=== PATIENT | female | born 1940 | race Caucasian/White ===

== ENCOUNTER 2016-12-21 14:43 | Emergency (ER) | payer MEDICARE, BC ==
[2016-12-21] MEDS ORDERED: Ondansetron 4 MG/2 ML SDV IV ONE (15:09)
[2016-12-21] MEDS ORDERED: Morphine 2 MG/ML Syringe IVPUSH ONE ×2 (15:34→17:24)
--- NOTE | 2016-12-21 15:40 | CR ---
Clinical history: 76-year-old female injured in fall. Interpretation: Abnormal. 3 views right hand and wrist confirm acute nondisplaced slightly impacted distal diaphyseal fracture of the osteopenic right radius (surrounding soft tissue swelling). Chronic arthritic changes involving the first carpal metacarpal, first second metacarpal phalangeal and all interphalangeal/DIP joints. Deformity at the PIP joint of the small or fifth finger suggest mild dislocation. No other fracture or joint dislocation right hand or wrist. No foreign bodies.
[2016-12-21 16:13] LABS: CHLORIDE,CL 102 mmol/L (101-111); SODIUM,NA 137 mmol/L (135-145)
--- NOTE | 2016-12-21 16:43 | CT ---
Clinical history: 76-year-old female with broken wrist suffered in a fall. Scan technique: Volume acquisition of data emergency unenhanced CT scan of the head and brain obtain ed with the patient lying supine on the Siemens multi slice scanner [place], [place]. All data archived in the PACS system for storage and study (bone/brain windows). Interpretation: 1. Uniformly thick bony calvarium (symmetric hyperostosis frontalis interna) without sign of skull f racture, underlying brain contusion or epidural/subdural hematoma. 2. Symmetric clear pneumatization of the mastoid and paranasal sinuses. 3. *Large areas of edema and/or encephalomalacia associated with ischemic infarcts that involve resp ectively the occipital lobe right cerebral hemisphere posteriorly; frontal temporal lobe on the; pos terior parietal lobe on the right and much of the contralateral left parietal lobe. 3. No appreciable supratentorial or posterior fossa mass effect on the underlying mirror-image dimas l ventricular system. Para 4. No sign of acute/intraventricular/subarachnoid bleed. CONCLUSION: Large, multilobar ischemic infarcts (no previous exams immediately available). No sign o f intracranial bleed, tumor mass or hydrocephalus. No midline shifts.
--- NOTE | 2016-12-21 17:12 | EDM.PDOC ---
[id number] Time Seen by Provider: 12/21/16 15:30 Source: Reports: Patient History Limitations: Reports: No limitations - History of Present Illness INITIAL COMMENTS - FREE TEXT/NARRATIVE: Pt states that she was walking and tripped anf fell onto outstretched arm. Denies LOC. c/o right arm pain. Has an abrasion to right forehead. no other complaints. Symptom Onset Date: 12/21/16 Occurred When: just prior to arrival Occurred Where: home Method of Injury: fall Severity: moderate Pain/Injury Location: Reports: upper extremity, right Consciousness: Reports: no loss of consciousness Associated Symptoms: Reports: no other symptoms Allergies/ADRs: Allergies amoxicillin trihydrate [From Augmentin] Allergy (Verified 09/22/15 11:15) Rash doxycycline Allergy (Verified 09/22/15 11:15) Rash potassium clavulanate [From Augmentin] Allergy (Verified 09/22/15 11:15) Rash Tetanus Vaccines and Toxoid [Tetanus Vaccines & Toxoid] Allergy (Verified 13:49) Edema Home Medications: Ambulatory Orders Aspirin [Talya Chewable Aspirin] 81 mg PO DAILY 03/26/14 [Confirmed 12/16/15] Calcium Carbonate/Vitamin D3 [Calcium 500 + Vit D Caplet] 1 tab PO BID 09/18/15 [Confirmed 12/16/15] Famotidine [Take Home: Famotidine 20 MG, 3 Tab Pack] 20 mg PO DAILY 09/18/15 [ Confirmed 12/16/15] Furosemide 20 mg PO DAILY 09/18/15 [Confirmed 12/16/15] Phenytoin Sodium Extended [Dilantin] 100 mg PO TID 09/18/15 [Confirmed 12/16/15] Potassium Chloride 10 meq PO TID 09/18/15 [Confirmed 12/16/15] QUEtiapine Fumarate [Quetiapine Fumarate] 50 mg PO BEDTIME 09/18/15 [Confirmed 12/16/15] atorvaSTATin [Lipitor] 80 mg PO DAILY 09/18/15 [Confirmed 12/16/15] glipiZIDE [Glipizide] 5 mg PO BID 09/18/15 [Confirmed 12/16/15] Clotrimazole [Lotrimin AF 1% Crm] 1 each TOP BID #30 gram 09/22/15 [Confirmed ] predniSONE 10 mg PO DAILY #7 tablet 12/31/15 [Confirmed 12/16/15] Past Medical History HEENT History: Reports: Cataract, Macular degeneration Cardiovascular History: Reports: High cholesterol Respiratory History: Reports: Pneumonia, recurrent, SOB Gastrointestinal History: Reports: GERD Musculoskeletal History: Reports: Arthritis Neurological History: Reports: CVA, Migraines, Seizure Endocrine/Metabolic History: Reports: Diabetes, type II Oncologic (Cancer) History: Reports: Colon Dermatologic History: Reports: Psoriasis, Other (see below) Other Dermatologic History: current rash - Infectious Disease History Infectious Disease History: Reports: Measles, Mumps, Shingles - Past Surgical History HEENT Surgical History: Reports: Cataract surgery Cardiovascular Surgical History: Reports: Carotid endarterectomy Other Cardiovascular Surgeries/Procedures: left side GI Surgical History: Reports: Other (see below) Other GI Surgeries/Procedures: bowel resection Musculoskeletal Surgical History: Reports: Other (see below) Other Musculoskeletal Surgeries/Procedures:: arm surgery Social & Family History - Family History Family Medical History: Noncontributory Endocrine/Metabolic: Reports: Diabetes, type II Oncologic: Reports: Other (see below) Other Oncologic Family History: brother had cancer - Tobacco Use Smoking Status *Q: Never Smoker Second Hand Smoke Exposure: No - Alcohol Use Days Per Week of Alcohol Use: 0 - Recreational Drug Use Recreational Drug Use: No Review of Systems - Review of Systems Review Of Systems: See Below Musculoskeletal: Reports: arm pain Skin: Reports: cyanosis, other (abrasion) Neurological: Reports: No Symptoms ED EXAM, TRAUMA (MAJOR/MULTI) - Physical Exam Exam: See Below Exam Limited By: No limitations General Appearance: alert, WD/WN, no apparent distress Head: normocephalic, facial abrasions Eyes: bilateral eye: normal inspection, PERRL Ears: normal external exam, normal canal, hearing grossly normal, normal TMs Nose: normal inspection, normal mucousa, no blood Cardiovascular: normal peripheral pulses, regular rate, rhythm, no edema, no gallop, no JVD, no murmur, no rub Respiratory/Chest: no respiratory distress, lungs clear, normal breath sounds, no accessory muscle use, chest non-tender Extremities: no pedal edema, pain with movement, tenderness, other (hematoma to anterior wrist, mild edema noted) Neurologic: guard museum II-XII nml as tested, no motor/sensory deficits, alert, normal mood/affect, oriented x 3 Skin: Normal color, Warm/dry - [place] Coma Score Best Eye Response (Peter): (4) open spontaneously Best Verbal Response (Peter): (5) oriented Best Motor Response (Peter): (6) obeys commands Peter Total: 15 ED TRAUMA PROCEDURES - Splinting Right Upper Extremity Pre-procedure NV status: normal Post-procedure NV status: normal Splint material: fiberglass Splint design: sugar tong Applied & form fitted by: provider Provider post-splint application NV check: NV status normal, good position Complications: No Course - Vital Signs Last Recorded V/S: Last Vital Signs Temp 98.1 F 12/21/16 15:00 Pulse 92 12/21/16 15:00 Resp 18 12/21/16 15:00 BP 133/86 12/21/16 15:00 Pulse Ox 95 12/21/16 15:00 - Orders/Labs/Meds Labs: Laboratory Tests 12/21/16 12/21/16 12/21/16 Range/Units 15:47 15:47 15:47 WBC 9.1 (5.0-10.0) 10^3/uL RBC 4.39 (4.2-5.4) 10^6/uL Hgb 13.2 (12.0-16.0) g/dL Hct 39.7 (37.0-47.0) % MCV 90.4 (80-100) fL MCH 30.1 (27.0-34.0) pg MCHC 33.2 (33.0-35.0) g/dL Plt Count 177 (150-450) 10^3/uL Neut % (Auto) 71.3 (42.2-75.2) % Lymph % (Auto) 17.5 L (20.5-50.1) % Mcleod % (Auto) 9.4 H (2-8) % Eos % (Auto) 1.6 (1.0-3.0) % Baso % (Auto) 0.2 (0.0-1.0) % PT 9.6 (9.0-12.0) SEC INR 1.0 (0.9-1.2) APTT (22.0-34.0) SEC Sodium 137 (135-145) mmol/L Potassium 3.8 (3.6-5.0) mmol/L Chloride 102 (101-111) mmol/L Carbon Dioxide 26.0 (21.0-31.0) mmol/L Anion Gap 12.8 BUN 13 (7-18) mg/dL Creatinine 0.7 (0.6-1.3) mg/dL Est Cr Clr Drug Dosing TNP Estimated GFR (MDRD) > 60 Glucose 108 H (74-105) mg/dL Calcium 8.5 (8.4-10.2) mg/dl Urine Color (YELLOW) Urine Appearance (CLEAR) Urine pH (5.0-9.0) Ur Specific [place] (1.005-1.030) Urine Protein (NEGATIVE) Urine Glucose (UA) (NEGATIVE) Urine Ketones (NEGATIVE) Urine Occult Blood (NEGATIVE) Urine Nitrite (NEGATIVE) Urine Bilirubin (NEGATIVE) Urine Urobilinogen (0.2-1.0) mg/dL Ur Leukocyte Esterase (NEGATIVE) Urine RBC /HPF Urine WBC (0-5/HPF) /HPF Ur Epithelial Cells /HPF Urine Bacteria (0-FEW/HPF) /HPF Urine Mucus /LPF 12/21/16 12/21/16 Range/Units 15:47 16:03 WBC (5.0-10.0) 10^3/uL RBC (4.2-5.4) 10^6/uL Hgb (12.0-16.0) g/dL Hct (37.0-47.0) % MCV (80-100) fL MCH (27.0-34.0) pg MCHC (33.0-35.0) g/dL Plt Count (150-450) 10^3/uL Neut % (Auto) (42.2-75.2) % Lymph % (Auto) (20.5-50.1) % Mcleod % (Auto) (2-8) % Eos % (Auto) (1.0-3.0) % Baso % (Auto) (0.0-1.0) % PT (9.0-12.0) SEC INR (0.9-1.2) APTT 28.5 (22.0-34.0) SEC Sodium (135-145) mmol/L Potassium (3.6-5.0) mmol/L Chloride (101-111) mmol/L Carbon Dioxide (21.0-31.0) mmol/L Anion Gap BUN (7-18) mg/dL Creatinine (0.6-1.3) mg/dL Est Cr Clr Drug Dosing Estimated GFR (MDRD) Glucose (74-105) mg/dL Calcium (8.4-10.2) mg/dl Urine Color Yellow (YELLOW) Urine Appearance Cloudy (CLEAR) Urine pH 7.0 (5.0-9.0) Ur Specific [place] 1.020 (1.005-1.030) Urine Protein 100 H (NEGATIVE) Urine Glucose (UA) Negative (NEGATIVE) Urine Ketones Negative (NEGATIVE) Urine Occult Blood Negative (NEGATIVE) Urine Nitrite Negative (NEGATIVE) Urine Bilirubin Negative (NEGATIVE) Urine Urobilinogen 0.2 (0.2-1.0) mg/dL Ur Leukocyte Esterase Trace H (NEGATIVE) Urine RBC 5-10 H /HPF Urine WBC 10-20 H (0-5/HPF) /HPF Ur Epithelial Cells Many H /HPF Urine Bacteria Few (0-FEW/HPF) /HPF Urine Mucus Many H /LPF Meds: Medications Discontinued Medications Generic Name Dose Route Start Last Admin Trade Name Freq PRN Reason Stop Dose Admin Morphine Sulfate 2 mg 12/21/16 15:34 12/21/16 15:43 Morphine IVPUSH 12/21/16 15:35 2 mg ONETIME ONE Administration Morphine Sulfate 2 mg 12/21/16 17:24 12/21/16 17:29 Morphine IVPUSH 12/21/16 17:25 2 mg ONETIME ONE Administration Ondansetron HCl 4 mg 12/21/16 15:09 12/21/16 15:39 Zofran IV 12/21/16 15:10 4 mg ONETIME ONE Administration - Radiology Interpretation Free Text/Narrative:: distal radius fx Departure - Departure Time of Disposition: 18:00 Disposition: Home, Self-Care 01 Condition: good Clinical Impression: Radius distal fracture Qualifiers: Encounter type: initial encounter Fracture type: closed Fracture morphology: other fracture Laterality: right Qualified Code(s): S52.591A - Other fractures of lower end of right radius, initial encounter for closed fracture Instructions: Radial Fracture Forms: ED Department Discharge Additional Instructions: Keep splint dry. Follow up in clinic on Saturday for referral for orthopedic appointment. Take Tylenol as needed for pain. You may take Reagan twice a day as needed for severe pain. Return for any decrease in sensation or numbness of fingers or worsening symptoms.
[2016-12-22 10:26] VITALS: BP 154/62
== END 2016-12-21 19:06 | disposition home or self-care (01) ==
LOC: DL.ED 14:43
DX: S52.591A Other fractures of lower end of right radius, initial encounter for closed fracture (principal); E78.00 Pure hypercholesterolemia, unspecified; K21.9 Gastro-esophageal reflux disease without esophagitis; E11.9 Type 2 diabetes mellitus without complications; G43.909 Migraine, unspecified, not intractable, without status migrainosus; L40.9 Psoriasis, unspecified; Z88.1 Allergy status to other antibiotic agents; Z88.8 Allergy status to other drugs, medicaments and biological substances; Z79.82 Long term (current) use of aspirin; Z79.899 Other long term (current) drug therapy; W19.XXXA Unspecified fall, initial encounter; Y93.01 Activity, walking, marching and hiking
CPT/HCPCS: 29125; 36415; 70450; 73130; 80048; 81001; 85025; 85610; 85730; 96374; 96375; 96376; 99284; 99285; J2270; J2405

== ENCOUNTER 2017-07-20 15:06 | Observation (INO) | payer MEDICARE, BC, MEDICAID ==
--- NOTE | 2017-07-20 15:09 | EDM.PDOC ---
ED HPI GENERAL MEDICAL PROBLEM - General Chief Complaint: General Stated Complaint: LEG PAINS, AMBULANCE BROUGHT Time Seen by Provider: 07/20/17 15:03 Source of Information: Reports: Patient History Limitations: Reports: No Limitations - History of Present Illness INITIAL COMMENTS - FREE TEXT/NARRATIVE: 77 yo white female c/o left knee pain when getting out of car. Pt. denies fall Onset: Today Onset Date: 07/20/17 Onset Time: 14:00 Duration: Hour(s): Location: Reports: Lower Extremity, Left Quality: Reports: Ache Severity: Moderate Improves with: Reports: Rest Worsens with: Reports: Movement Context: Reports: Activity (getting out of car) Associated Symptoms: Reports: No Other Symptoms Left Knee Pain Score (Numeric/FACES): 8 - Related Data Allergies Allergy/AdvReac Type Severity Reaction Status Date / Time amoxicillin trihydrate Allergy Rash Verified 07/20/17 15:06 [From Augmentin] doxycycline Allergy Rash Verified 07/20/17 15:06 potassium clavulanate Allergy Rash Verified 07/20/17 15:06 [From Augmentin] Tetanus Vaccines and Toxoid Allergy Edema Verified 07/20/17 15:06 [Tetanus Vaccines & Toxoid] Home Meds: Home Meds Aspirin [Talya Chewable Aspirin] 81 mg PO DAILY 03/26/14 [History] Calcium Carbonate/Vitamin D3 [Calcium 500 + Vit D Caplet] 1 tab PO BID 09/18/15 [History] Famotidine [Take Home: Famotidine 20 MG, 3 Tab Pack] 20 mg PO DAILY 09/18/15 [ History] Furosemide 20 mg PO DAILY 09/18/15 [History] Phenytoin Sodium Extended [Dilantin] 100 mg PO TID 09/18/15 [History] Potassium Chloride 10 meq PO TID 09/18/15 [History] QUEtiapine Fumarate [Quetiapine Fumarate] 50 mg PO BEDTIME 09/18/15 [History] atorvaSTATin [Lipitor] 80 mg PO DAILY 09/18/15 [History] glipiZIDE [Glipizide] 5 mg PO BID 09/18/15 [History] Clotrimazole [Lotrimin AF 1% Crm] 1 each TOP BID #30 gram 09/22/15 [Rx] predniSONE 10 mg PO DAILY #7 tablet 09/22/15 [Rx] Past Medical History HEENT History: Reports: Cataract, Macular Degeneration Cardiovascular History: Reports: High Cholesterol Respiratory History: Reports: Pneumonia, Recurrent, SOB Gastrointestinal History: Reports: GERD Musculoskeletal History: Reports: Arthritis Neurological History: Reports: CVA, Migraines, Seizure Endocrine/Metabolic History: Reports: Diabetes, Type II Oncologic (Cancer) History: Reports: Colon Dermatologic History: Reports: Psoriasis, Other (See Below) Other Dermatologic History: current rash - Infectious Disease History Infectious Disease History: Reports: Measles, Mumps, Shingles - Past Surgical History HEENT Surgical History: Reports: Cataract Surgery Cardiovascular Surgical History: Reports: Carotid Endarterectomy GI Surgical History: Reports: Other (See Below) Musculoskeletal Surgical History: Reports: Other (See Below) Social & Family History - Family History Family Medical History: Noncontributory Endocrine/Metabolic: Reports: Diabetes, type II Oncologic: Reports: Other (See Below) Other Oncologic Family History: brother had cancer - Tobacco Use Smoking Status *Q: Never Smoker Second Hand Smoke Exposure: No - Caffeine Use Caffeine Use: Reports: Coffee, Soda - Alcohol Use Days Per Week of Alcohol Use: 0 - Recreational Drug Use Recreational Drug Use: No Review of Systems - Review of Systems Review Of Systems: See Below Constitutional: Reports: No Symptoms Eyes: Reports: No Symptoms Ears: Reports: No Symptoms Nose: Reports: No Symptoms Mouth/Throat: Reports: No Symptoms Respiratory: Reports: No Symptoms Cardiovascular: Reports: No Symptoms GI/Abdominal: Reports: No Symptoms Genitourinary: Reports: No Symptoms Musculoskeletal: Reports: Joint Pain (left knee(medial and posterior)) Skin: Reports: No Symptoms Neurological: Reports: No Symptoms Psychiatric: Reports: No Symptoms ED EXAM, GENERAL - Physical Exam Exam: See Below Exam Limited By: No Limitations General Appearance: Alert, WD/WN Eye Exam: Bilateral Eye: PERRL Ears: Normal External Exam Nose: Normal Inspection Throat/Mouth: Normal Inspection Head: Atraumatic Neck: Normal Inspection Respiratory/Chest: No Respiratory Distress Cardiovascular: Normal Peripheral Pulses GI/Abdominal: Normal Bowel Sounds Back Exam: Normal Inspection Extremities: Normal Inspection, Limited Range of Motion (left knee w/ tenderness medial and posterior) Neurological: Alert, Oriented, CN II-XII Intact Psychiatric: Normal Affect Skin Exam: Warm, Dry Lymphatic: No Adenopathy Course - Vital Signs Last Recorded V/S: Last Vital Signs Temp 36.4 C 07/20/17 15:09 Pulse 97 07/20/17 15:09 Resp 22 H 07/20/17 15:09 BP 169/98 H 07/20/17 15:09 Pulse Ox 97 07/20/17 15:09 - Orders/Labs/Meds Orders: Active Orders 24 hr Category Date Time Status Knee wo Cont Lt [CT] Urgent Exams 07/20/17 15:07 Taken Meds: Medications Discontinued Medications Generic Name Dose Route Start Last Admin Trade Name Sarah PRN Reason Stop Dose Admin Hydrocodone Bitart/Acetaminophen 1 tab 07/20/17 15:21 07/20/17 15:27 [place] 325-5 Mg PO 07/20/17 15:22 1 tab ONETIME ONE Administration Ibuprofen 400 mg 07/20/17 15:21 07/20/17 15:28 Motrin PO 07/20/17 15:22 400 mg ONETIME ONE Administration Departure - Departure Time of Disposition: 16:29 Disposition: Admitted As Inpatient 66 Condition: Fair Clinical Impression: Unable to ambulate Left knee pain Qualifiers: Chronicity: acute Qualified Code(s): M25.562 - Pain in left knee - Discharge Information Referrals: Kenneth Dumont MD [Physician] - Forms: ED Department Discharge - My Orders Last 24 Hours: My Active Orders 07/20/17 15:07 Knee wo Cont Lt [CT] Urgent - Assessment/Plan Last 24 Hours: My Active Orders 07/20/17 15:07 Knee wo Cont Lt [CT] Urgent
[2017-07-20] MEDS ORDERED: Ibuprofen 400 MG Tab PO ONE (15:21)
[2017-07-20] MEDS ORDERED: Acetaminophen/HYDROcodone 325-5 MG Tab PO ONE (15:21)
[2017-07-20] MEDS ORDERED: Ondansetron 4 MG Tab.DIS PO PRN (18:52)
[2017-07-20] MEDS ORDERED: Docusate Sodium 100 MG Cap PO PRN (18:52)
[2017-07-20] MEDS ORDERED: Acetaminophen 325 MG Tab PO PRN (18:52)
[2017-07-20] MEDS ORDERED: Morphine 2 MG/ML Syringe IVPUSH PRN (18:52)
[2017-07-20] MEDS ORDERED: Polyethylene Glycol 3350 Powder 17 GM Packet PO PRN (18:52)
--- NOTE | 2017-07-20 19:12 | PCM.HP ---
H&P History of Present Illness - General Date of Service: 07/20/17 Admit Problem/Dx: Admission Diagnosis/Problem Admission Diagnosis/Problem Knee pain Source of Information: Patient History Limitations: Reports: No Limitations - History of Present Illness Initial Comments - Free Text/Narative: 77-year-old female with past medical history of seizure disorder, psoriasis, hyperlipidemia, diabetes mellitus, CVA, colon cancer, congestive heart failure, carotid artery disease presented to the emergency room after having left knee pain this evening. Patient stated that she was getting out of her friend's car/ sedan and after getting out she relies she is not able to bear weight on her left knee due to severe pain. Patient does not remember twisting her knee, hearing or feeling popping of the knee, injuring the knee, falling, or any other symptoms or injuries. Patient pain is severe and located in the knee joint. Patient denies dizziness, headache, upper respiratory symptoms, chest pain, shortness of breath, palpitation, nausea, vomiting, fever, chills, abdominal pain, diarrhea, constipation, insulin, black stool, lower extremities edema, any other symptoms or concerns. She has been taking her medications as supposed to. 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 7 mm intra-articular loose body in the posterior medial compartment of the left knee. No sign of fracture or dislocation. Vascular calcifications and post femoral and popliteal arteries. Left Knee Pain Score (Numeric/FACES): 7 - Related Data Allergies/Adverse Reactions: Allergies Allergy/AdvReac Type Severity Reaction Status Date / Time Tetanus Vaccines and Toxoid Allergy Severe Edema Verified 07/20/17 17:54 [Tetanus Vaccines & Toxoid] amoxicillin trihydrate Allergy Intermediate Rash Verified 07/20/17 17:54 [From Augmentin] doxycycline Allergy Intermediate Rash Verified 07/20/17 17:54 potassium clavulanate Allergy Intermediate Rash Verified 07/20/17 17:54 [From Augmentin] Home Medications: Home Meds Aspirin [Talya Chewable Aspirin] 81 mg PO DAILY 03/26/14 [History] Calcium Carbonate/Vitamin D3 [Calcium 500 + Vit D Caplet] 1 tab PO BID 09/18/15 [History] Famotidine [Take Home: Famotidine 20 MG, 3 Tab Pack] 20 mg PO DAILY 09/18/15 [ History] Furosemide 20 mg PO DAILY 09/18/15 [History] Phenytoin Sodium Extended [Dilantin] 100 mg PO TID 09/18/15 [History] Potassium Chloride 10 meq PO TID 09/18/15 [History] QUEtiapine Fumarate [Quetiapine Fumarate] 50 mg PO BEDTIME 09/18/15 [History] atorvaSTATin [Lipitor] 80 mg PO DAILY 09/18/15 [History] glipiZIDE [Glipizide] 5 mg PO BID 09/18/15 [History] Clotrimazole [Lotrimin AF 1% Crm] 1 each TOP BID #30 gram 09/22/15 [Rx] predniSONE 10 mg PO DAILY #7 tablet 09/22/15 [Rx] Past Medical History HEENT History: Reports: Cataract, Macular Degeneration Cardiovascular History: Reports: CAD, Heart Murmur, High Cholesterol Respiratory History: Reports: Pneumonia, Recurrent, SOB Gastrointestinal History: Reports: GERD Genitourinary History: Reports: None, Urinary Incontinence, Other (See Below) Other Genitourinary History: stress [employer] History: Reports: None Musculoskeletal History: Reports: Arthritis, Fracture Neurological History: Reports: CVA, Migraines, Seizure, Other (See Below) Other Neuro History: RIGHT-SIDED WEAKNESS Psychiatric History: Reports: None Endocrine/Metabolic History: Reports: Diabetes, Type II, Obesity/BMI 30+ Hematologic History: Reports: None Immunologic History: Reports: None Oncologic (Cancer) History: Reports: Colon Dermatologic History: Reports: Psoriasis Other Dermatologic History: current rash - Infectious Disease History Infectious Disease History: Reports: Chicken Pox, Shingles - Past Surgical History HEENT Surgical History: Reports: Cataract Surgery Cardiovascular Surgical History: Reports: Carotid Endarterectomy Respiratory Surgical History: Reports: None GI Surgical History: Reports: Colonoscopy, Colostomy, Other (See Below) Other GI Surgeries/Procedures: COLOSTOMY REVERSED Female Surgical History: Reports: None Neurological Surgical History: Reports: None Musculoskeletal Surgical History: Reports: None Oncologic Surgical History: Reports: Other (See Below) Dermatological Surgical History: Reports: None Social & Family History - Family History Family Medical History: Noncontributory Endocrine/Metabolic: Reports: Diabetes, type II Oncologic: Reports: Other (See Below) Other Oncologic Family History: brother had cancer - Tobacco Use Smoking Status *Q: Never Smoker Second Hand Smoke Exposure: No - Caffeine Use Caffeine Use: Reports: None - Alcohol Use Days Per Week of Alcohol Use: 0 - Recreational Drug Use Recreational Drug Use: No H&P Review of Systems - Review of Systems: Review Of Systems: ROS reveals no pertinent complaints other than HPI. Exam - Exam Exam: See Below - Vital Signs Vital Signs: Last Vital Signs Temp 36.4 C 07/20/17 16:54 Pulse 76 07/20/17 16:54 Resp 18 07/20/17 16:54 BP 191/59 H 07/20/17 16:54 Pulse Ox 98 07/20/17 16:54 Weight: 82.735 kg - Exam General: Alert, Oriented, Cooperative. No: Mild Distress, Moderate Distress, Severe Distress, Sedated, Lethargic, Obtunded HEENT: Conjunctiva Clear, EACs Clear, EOMI, Hearing Intact, Mucosa Moist & [place] , Nares Patent, Normal Nasal Septum, Posterior Pharynx Clear, Pupils Equal, Pupils Reactive Neck: Supple, Trachea Midline. No: JVD Lungs: Clear to Auscultation, Normal Respiratory Effort. No: Crackles, Rales, Rhonchi, Rub, Stridor, Wheezing Cardiovascular: Regular Rate, Regular Rhythm GI/Abdominal Exam: Normal Bowel Sounds, Soft, Non-Tender, No Organomegaly, No Distention, No Abnormal Bruit, No Mass (Female) Exam: Deferred Rectal (Female) Exam: Deferred Back Exam: Normal Inspection, Full Range of Motion Extremities: Normal Inspection, Other (Left knee: No swelling, redness, effusion. Patient is tender anteriorly. Good range of motion. No laxity. Anterior drawer test causes marked tenderness. Rest of her joints aren't unremarkable to acute findings and consistent with her age). No: Pedal Edema, Joint Swelling Skin: Warm, Dry, Intact. No: Rash, Ecchymosis Neurological: Cranial Nerves Intact, Strength Equal Bilateral, Normal Speech, Normal Tone Neuro Extensive - Mental Status: Alert, Oriented x3, Normal Mood/Affect, Normal Cognition, Memory Intact Neuro Extensive - Motor, Sensory, Reflexes: CN II-XII Intact, Normal Reflexes. No: Tongue Deviation (L), Tongue Deviation (R), Dysarthria, Receptive Aphasia, Expressive Aphasia, Total Aphasia, Facial palsy (L), Facial Palsy (R) Psychiatric: Alert, Normal Affect, Normal Mood *Q Meaningful Use (ADM) - VTE *Q VTE Criteria *Q: - Stroke *Q Stroke Criteria *Q: - AMI *Q AMI Criteria *Q: - Problem List (1) Diabetes mellitus SNOMED Code(s): 87088417 ICD Code: E11.9 - TYPE 2 DIABETES MELLITUS WITHOUT COMPLICATIONS Status: Chronic Current Visit: Yes (2) Seizure disorder SNOMED Code(s): 811984308 ICD Code: G40.909 - EPILEPSY, UNSP, NOT INTRACTABLE, WITHOUT STATUS EPILEPTICUS Status: Chronic Current Visit: Yes (3) Psoriasis SNOMED Code(s): 9250767 ICD Code: L40.9 - PSORIASIS, UNSPECIFIED Status: Chronic Current Visit: Yes (4) History of CVA (cerebrovascular accident) SNOMED Code(s): 597455127 ICD Code: Z86.73 - PRSNL HX OF TIA (TIA), AND CEREB INFRC W/O RESID DEFICITS Status: Chronic Current Visit: Yes (5) History of congestive heart failure SNOMED Code(s): 941245349 ICD Code: Z86.79 - PERSONAL HISTORY OF OTHER DISEASES OF THE CIRCULATORY SYSTEM Status: Chronic Current Visit: Yes (6) Left knee pain SNOMED Code(s): 62999395 ICD Code: M25.562 - PAIN IN LEFT KNEE Status: Acute Priority: High Current Visit: Yes Qualifiers: Chronicity: acute Qualified Code(s): M25.562 - Pain in left knee Problem List Initiated/Reviewed/Updated: Yes Orders Last 24hrs: Active Orders 24 hr Category Date Time Status Patient Status [ADT] Routine ADT 07/20/17 18:52 Ordered Antiembolic Devices [RC] PER UNIT ROUTINE Care 07/20/17 19:00 Ordered Blood Glucose Check, Bedside [RC] DAILY Care 07/20/17 18:52 Ordered Brace [Immobilizer] [RC] ASDIRECTED Care 07/20/17 19:03 Ordered Communication Order [RC] ROUTINE Care 07/20/17 19:05 Ordered Height and Weight [RC] DAILY Care 07/20/17 18:52 Ordered Intake and Output [RC] QSHIFT Care 07/20/17 18:58 Ordered Notify Provider Vital Signs [RC] ASDIRECTED Care 07/20/17 18:59 Ordered Oxygen Therapy [RC] PRN Care 07/20/17 18:52 Ordered Up ad [place] [RC] ASDIRECTED Care 07/20/17 18:52 Ordered VTE/DVT Education [RC] PER UNIT ROUTINE Care 07/20/17 18:52 Ordered Vital Signs [RC] Q4H Care 07/20/17 18:52 Ordered OT Evaluation and Treatment [CONS] Routine Cons 07/20/17 18:52 Ordered PT Evaluation and Treatment [CONS] Routine Cons 07/20/17 18:52 Ordered Consistent Carbohydrate Diet [DIET] Diet 07/20/17 Breakfast Ordered BASIC METABOLIC PANEL,BMP [CHEM] AM Lab 07/21/17 05:11 Ordered CBC WITH AUTO DIFF [HEME] AM Lab 07/21/17 05:11 Ordered Acetaminophen [Tylenol] Med 07/20/17 18:52 Ordered 650 mg PO Q4H PRN Acetaminophen/HYDROcodone [[place] 325-10 MG] Med 07/20/17 18:52 Ordered 1 tab PO Q4H PRN Aspirin Med 07/21/17 09:00 Active 81 mg PO DAILY Calcium Carbonate/Vitamin D3 [Calcium Carbonate/Vitamin Med 07/20/17 21:00 Active D 1250 MG-200 Unit] 1 tab PO BID Docusate Sodium [Colace] Med 07/20/17 18:52 Ordered 100 mg PO BID PRN Enoxaparin [Lovenox] Med 07/21/17 09:00 Ordered 40 mg SUBCUT DAILY Famotidine [Pepcid] Med 07/21/17 09:00 Active 20 mg PO DAILY Furosemide [Lasix] Med 07/20/17 19:00 Active 10 mg PO TIDMEALS Morphine Med 07/20/17 18:52 Ordered 2 mg IVPUSH Q4H PRN Ondansetron [Zofran ODT] Med 07/20/17 18:52 Ordered 4 mg PO Q4H PRN Phenytoin Med 07/20/17 21:00 Active 100 mg PO TID Polyethylene Glycol 3350 [MiraLAX] Med 07/20/17 18:52 Ordered 17 gm PO DAILY PRN Potassium Chloride [Klor-Con 10] Med 07/20/17 19:15 Active 10 meq PO TIDMEALS QUEtiapine [SEROquel] Med 07/20/17 21:00 Active 50 mg PO BEDTIME atorvaSTATin [Lipitor] Med 07/21/17 09:00 Active 80 mg PO DAILY glipiZIDE [Glucotrol] Med 07/20/17 19:15 Active 7.5 mg PO BIDMEALS Antiembolic Hose [OM.PC] Per Unit Routine Oth 07/20/17 18:59 Ordered Resuscitation Status Routine Resus Stat 07/20/17 18:52 Ordered Medication Orders Aspirin (Aspirin) 81 mg PO DAILY [facility] Atorvastatin Calcium (Lipitor) 80 mg PO DAILY [facility] Calcium Carbonate (Calcium Carbonate/Vitamin D 1250 Mg-200 Unit) 1 tab PO BID [facility] Famotidine (Pepcid) 20 mg PO DAILY [facility] Furosemide (Lasix) 10 mg PO TIDMEALS [facility] Glipizide (Glucotrol) 7.5 mg PO BIDMEALS [facility] Phenytoin Sodium (Phenytoin) 100 mg PO TID [facility] Potassium Chloride (Klor-Con 10) 10 meq PO TIDMEALS [facility] Quetiapine Fumarate (Seroquel) 50 mg PO BEDTIME SERENA Assessment/Plan Comment:: Impression: 77-year-old female with the above past medical history presented with nontraumatic left knee pain and not able to bear weight. CT scan is concerning for loose objects in the knee. I wonder if she has meniscus injury. Patient lives by herself and not able to take care of herself due to her knee problem Acute problem list Left knee pain Chronic problem list Seizure disorder Diabetes mellitus Congestive heart failure, no exacerbation Psoriasis History of colon cancer Plan: Tylenol, hydrocodone, morphine as needed for pain control I ordered physical and occupational therapy. Unfortunately we don't have therapist until Saturday Left Knee immobilizer Patient will be using her walker We'll try to ip counsel with orthopedics tomorrow Continue same medications for her chronic problems as per orders Do basic blood work tomorrow Lovenox for DVT prophylaxis Patient wants to be DNR for CODE STATUS Plan of care was discussed with patient and she verbalized understanding and agreed with
[2017-07-20] MEDS: Phenytoin 100 MG Cap.ER PO SCH (20:10)
[2017-07-20] MEDS: QUEtiapine 25 MG Tab PO SCH (20:10)
[2017-07-20] MEDS: Potassium Chloride 10 MEQ Tab.ER PO SCH (20:10)
[2017-07-20] MEDS: Furosemide 20 MG Tab PO SCH (20:10)
[2017-07-20] MEDS: Calcium Carbonate/Vitamin D3 1250 MG-200 Unit Tab PO SCH (20:11)
[2017-07-20] MEDS: glipiZIDE 5 MG Tab PO SCH (20:14)
[2017-07-20] MEDS ORDERED: Clotrimazole 1% Crm 30 GM Tube TOP SCH (21:00)
[2017-07-20] MEDS ORDERED: glipiZIDE 5 MG Tab PO SCH (21:00)
[2017-07-21] MEDS: Acetaminophen/HYDROcodone 325-10 MG Tab PO PRN ×3 (04:59→16:15)
[2017-07-21 06:52] LABS: CHLORIDE,CL 102 mmol/L (101-111); SODIUM,NA 140 mmol/L (135-145)
[2017-07-21] MEDS: atorvaSTATin 20 MG Tab PO SCH (08:10)
[2017-07-21] MEDS: Phenytoin 100 MG Cap.ER PO SCH ×3 (08:11→20:20)
[2017-07-21] MEDS: Calcium Carbonate/Vitamin D3 1250 MG-200 Unit Tab PO SCH ×2 (08:11→20:20)
[2017-07-21] MEDS: Famotidine 20 MG Tab PO SCH (08:11)
[2017-07-21] MEDS: Potassium Chloride 10 MEQ Tab.ER PO SCH ×3 (08:11→17:47)
[2017-07-21] MEDS: Aspirin 81 MG Tab.Chew PO SCH (08:11)
[2017-07-21] MEDS: Furosemide 20 MG Tab PO SCH ×3 (08:11→17:47)
[2017-07-21] MEDS: Enoxaparin 40 MG/0.4 ML Syringe SUBCUT SCH (08:12)
[2017-07-21] MEDS: glipiZIDE 5 MG Tab PO SCH ×2 (08:12→17:48)
[2017-07-21] MEDS ORDERED: predniSONE 10 MG Tab PO SCH (09:00)
[2017-07-21] MEDS ORDERED: Furosemide 20 MG Tab PO SCH (09:00)
--- NOTE | 2017-07-21 09:40 | PCM.PN ---
- General Info Date of Service: 07/21/17 Admission Dx/Problem (Free Text): Admission Diagnosis/Problem Admission Diagnosis/Problem Knee pain Subjective Update: Patient stated that she is feeling better. She was able to put slight weight on her left lower extremity using the knee immobilizer and walker. Her left knee pain is still there but stopped controlled on oral medications. She denies fever , chills, nausea, vomiting, chest pain, shortness breath, lower extremities edema, abdominal pain, constipation, diarrhea, or any other symptoms of concern. Functional Status: Reports: Pain Controlled - Patient Data Vitals - Most Recent: Last Vital Signs Temp 36.6 C 07/21/17 07:14 Pulse 68 07/21/17 07:14 Resp 20 07/21/17 07:14 BP 154/60 H 07/21/17 07:14 Pulse Ox 94 L 07/21/17 07:14 Weight - Most Recent: 81.448 kg I&O - Last 24 Hours: Intake & Output 07/20/17 07/21/17 07/21/17 22:59 06:59 14:59 Intake Total 200 325 Output Total 300 Balance -100 325 Lab Results Last 24 Hours: Laboratory Results - last 24 hr 07/20/17 07/21/17 07/21/17 Range/Units 19:31 06:18 06:18 WBC 9.4 (5.0-10.0) 10^3/uL RBC 4.30 (4.2-5.4) 10^6/uL Hgb 12.0 (12.0-16.0) g/dL Hct 37.6 (37.0-47.0) % MCV 87.4 D (80-100) fL MCH 27.9 (27.0-34.0) pg MCHC 31.9 L (33.0-35.0) g/dL Plt Count 218 (150-450) 10^3/uL Neut % (Auto) 68.8 (42.2-75.2) % Lymph % (Auto) 17.7 L (20.5-50.1) % [place] % (Auto) 10.5 H (2-8) % Eos % (Auto) 2.7 (1.0-3.0) % Baso % (Auto) 0.3 (0.0-1.0) % Sodium 140 (135-145) mmol/L Potassium 4.3 (3.6-5.0) mmol/L Chloride 102 (101-111) mmol/L Carbon Dioxide 28.0 (21.0-31.0) mmol/L Anion Gap 14.3 BUN 14 (7-18) mg/dL Creatinine 0.7 (0.6-1.3) mg/dL Est Cr Clr Drug Dosing 53.91 mL/min Estimated GFR (MDRD) > 60 Glucose 111 H (74-105) mg/dL POC Glucose 172 H (83-110) mg/dl Calcium 9.3 (8.4-10.2) mg/dl 07/21/17 Range/Units 07:27 WBC (5.0-10.0) 10^3/uL RBC (4.2-5.4) 10^6/uL Hgb (12.0-16.0) g/dL Hct (37.0-47.0) % MCV (80-100) fL MCH (27.0-34.0) pg MCHC (33.0-35.0) g/dL Plt Count (150-450) 10^3/uL Neut % (Auto) (42.2-75.2) % Lymph % (Auto) (20.5-50.1) % [place] % (Auto) (2-8) % Eos % (Auto) (1.0-3.0) % Baso % (Auto) (0.0-1.0) % Sodium (135-145) mmol/L Potassium (3.6-5.0) mmol/L Chloride (101-111) mmol/L Carbon Dioxide (21.0-31.0) mmol/L Anion Gap BUN (7-18) mg/dL Creatinine (0.6-1.3) mg/dL Est Cr Clr Drug Dosing mL/min Estimated GFR (MDRD) Glucose (74-105) mg/dL POC Glucose 110 (83-110) mg/dl Calcium (8.4-10.2) mg/dl Med Orders - Current: Current Medications Acetaminophen (Tylenol) 650 mg PO Q4H PRN PRN Reason: Pain (Mild 1-3)/fever Last Admin: 07/21/17 08:11 Dose: 650 mg Hydrocodone Bitart/Acetaminophen ([place] 325-10 Mg) 1 tab PO Q4H PRN PRN Reason: Pain (moderate 4-6) Last Admin: 07/21/17 04:59 Dose: 1 tab Aspirin (Aspirin) 81 mg PO DAILY [facility] Last Admin: 07/21/17 08:11 Dose: 81 mg Atorvastatin Calcium (Lipitor) 80 mg PO DAILY [facility] Last Admin: 07/21/17 08:10 Dose: 80 mg Calcium Carbonate (Calcium Carbonate/Vitamin D 1250 Mg-200 Unit) 1 tab PO BID [facility] Last Admin: 07/21/17 08:11 Dose: 1 tab Docusate Sodium (Colace) 100 mg PO BID PRN PRN Reason: Constipation Enoxaparin Sodium (Lovenox) 40 mg SUBCUT DAILY [facility] Last Admin: 07/21/17 08:12 Dose: 40 mg Famotidine (Pepcid) 20 mg PO DAILY [facility] Last Admin: 07/21/17 08:11 Dose: 20 mg Furosemide (Lasix) 10 mg PO TIDMEALS [facility] Last Admin: 07/21/17 08:11 Dose: 10 mg Glipizide (Glucotrol) 7.5 mg PO BIDMEALS [facility] Last Admin: 07/21/17 08:12 Dose: 7.5 mg Morphine Sulfate (Morphine) 2 mg IVPUSH Q4H PRN PRN Reason: Pain (severe 7-10) Ondansetron HCl (Zofran Odt) 4 mg PO Q4H PRN PRN Reason: nausea, able to take PO Phenytoin Sodium (Phenytoin) 100 mg PO TID [facility] Last Admin: 07/21/17 08:11 Dose: 100 mg Polyethylene Glycol (Miralax) 17 gm PO DAILY PRN PRN Reason: Constipation Potassium Chloride (Klor-Con 10) 10 meq PO TIDMEALS [facility] Last Admin: 07/21/17 08:11 Dose: 10 meq Quetiapine Fumarate (Seroquel) 50 mg PO BEDTIME [facility] Last Admin: 07/20/17 20:10 Dose: 50 mg Discontinued Medications Hydrocodone Bitart/Acetaminophen ([place] 325-5 Mg) 1 tab PO ONETIME ONE Stop: 07/20/17 15:22 Last Admin: 07/20/17 15:27 Dose: 1 tab Clotrimazole (Lotrimin Af 1% Crm) gm TOP BID [facility] Furosemide (Lasix) 20 mg PO DAILY [facility] Glipizide (Glucotrol) 5 mg PO BID [facility] Ibuprofen (Motrin) 400 mg PO ONETIME ONE Stop: 07/20/17 15:22 Last Admin: 07/20/17 15:28 Dose: 400 mg Prednisone (Prednisone) 10 mg PO DAILY [facility] - Exam General: Alert, Oriented, Cooperative, No Acute Distress. No: Moderate Distress , Severe Distress, Sedated, Lethargic, Obtunded HEENT: Pupils Equal, Pupils Reactive, EOMI, Mucous Membr. Moist/[place] Neck: Supple, Trachea Midline, No JVD Lungs: Clear to Auscultation, Normal Respiratory Effort Cardiovascular: Regular Rate, Regular Rhythm GI/Abdominal Exam: Normal Bowel Sounds, Soft, Non-Tender, No Organomegaly, No Distention, No Abnormal Bruit, No Mass (Female) Exam: Deferred Back Exam: Normal Inspection, Full Range of Motion Extremities: Normal Inspection, Normal Range of Motion, Non-Tender, No Pedal Edema, Normal Capillary Refill, Other (Left knee exam had good range of motion. No effusion or swelling appreciated. No laxity.Knee was anteriorly and posterioly tender to anterior and posterior drawer tests and valgus and varus knee exam.) Skin: Dry, Intact. No: Rash Neurological: No New Focal Deficit Psy/Mental Status: Alert, Normal Affect, Normal Mood - Problem List & Annotations (1) Diabetes mellitus SNOMED Code(s): 10645828 Code(s): E11.9 - TYPE 2 DIABETES MELLITUS WITHOUT COMPLICATIONS Status: Chronic Current Visit: Yes (2) Seizure disorder SNOMED Code(s): 704170458 Code(s): G40.909 - EPILEPSY, UNSP, NOT INTRACTABLE, WITHOUT STATUS EPILEPTICUS Status: Chronic Current Visit: Yes (3) Psoriasis SNOMED Code(s): 1929565 Code(s): L40.9 - PSORIASIS, UNSPECIFIED Status: Chronic Current Visit: Yes (4) History of CVA (cerebrovascular accident) SNOMED Code(s): 200518460 Code(s): Z86.73 - PRSNL HX OF TIA (TIA), AND CEREB INFRC W/O RESID DEFICITS Status: Chronic Current Visit: Yes (5) History of congestive heart failure SNOMED Code(s): 774564704 Code(s): Z86.79 - PERSONAL HISTORY OF OTHER DISEASES OF THE CIRCULATORY SYSTEM Status: Chronic Current Visit: Yes (6) Left knee pain SNOMED Code(s): 04990636 Code(s): M25.562 - PAIN IN LEFT KNEE Status: Acute Priority: High Current Visit: Yes Qualifiers: Chronicity: acute Qualified Code(s): M25.562 - Pain in left knee - Problem List Review Problem List Initiated/Reviewed/Updated: Yes - My Orders Last 24 Hours: My Active Orders 07/20/17 19:03 Brace [Immobilizer] [RC] ASDIRECTED 07/20/17 19:05 Communication Order [RC] ROUTINE - Plan Plan:: Impression: 77-year-old female with the above past medical history presented with nontraumatic left knee pain and not able to bear weight. CT scan is concerning for loose objects in the knee. I wonder if she has meniscus injury. Patient lives by herself and not able to take care of herself due to her knee problem Acute problem list Left knee pain Left degenerative meniscus tear Chronic problem list Seizure disorder Diabetes mellitus Congestive heart failure, no exacerbation Psoriasis History of colon cancer Plan: Continue Tylenol, hydrocodone, morphine as needed for pain control -I ordered physical and occupational therapy. Unfortunately we don't have therapist until tomorrow Left Knee immobilizer Patient will be using her walker She was encourage to sit in chair rather than layig in bed all the time I spoke to Dr. Dixon from Ortho at [facility] over the phone who reviewed the CT scan of left knee and believed that patient had left degenerative meniscus tear and recommended Icing, NSAIDs, immobilizer, walker, physical therapy, and slowly bearing weight as tolerated on left lower extremity . Patient denies hx of kidney disease or peptic ulcer disease Start Marek I discussed home health vs temporarily stay at long-term for physcial therapy. will richard administrator social welfare and PT see her tomorrow and fo from there Continue same medications for her chronic problems as per orders Do basic blood work tomorrow Lovenox for DVT prophylaxis Patient wants to be DNR for CODE STATUS Plan of care was discussed with patient and she verbalized understanding and agreed with
[2017-07-21] MEDS: QUEtiapine 25 MG Tab PO SCH (20:19)
--- NOTE | 2017-07-22 08:30 | PCM.PN ---
- General Info Date of Service: 07/22/17 Admission Dx/Problem (Free Text): Admission Diagnosis/Problem Admission Diagnosis/Problem Knee pain Subjective Update: Patient stated that her left knee is getting better. She stated that she was able to put weight partially on her left lower extremity using the knee immobilizer and walker. Her left knee pain is still there but is controlled on oral medications. She denies fever, chills, nausea, vomiting, chest pain, shortness breath, lower extremities edema, abdominal pain, constipation, diarrhea, or any other symptoms of concern. Functional Status: Reports: Pain Controlled - Patient Data Vitals - Most Recent: Last Vital Signs Temp 36.9 C 07/22/17 07:53 Pulse 78 07/22/17 07:53 Resp 20 07/22/17 07:53 BP 150/60 H 07/22/17 07:53 Pulse Ox 96 07/22/17 07:53 Weight - Most Recent: 84.595 kg I&O - Last 24 Hours: Intake & Output 07/21/17 07/22/17 07/22/17 22:59 06:59 14:59 Intake Total 640 Output Total 900 350 Balance -260 -350 Lab Results Last 24 Hours: Laboratory Results - last 24 hr 07/21/17 07/22/17 Range/Units 16:06 07:34 POC Glucose 120 H 148 H (83-110) mg/dl Med Orders - Current: Current Medications Acetaminophen (Tylenol) 650 mg PO Q4H PRN PRN Reason: Pain (Mild 1-3)/fever Last Admin: 07/21/17 08:11 Dose: 650 mg Hydrocodone Bitart/Acetaminophen (Prather 325-10 Mg) 1 tab PO Q4H PRN PRN Reason: Pain (moderate 4-6) Last Admin: 07/21/17 16:15 Dose: 1 tab Aspirin (Aspirin) 81 mg PO DAILY [facility] Last Admin: 07/21/17 08:11 Dose: 81 mg Atorvastatin Calcium (Lipitor) 80 mg PO DAILY [facility] Last Admin: 07/21/17 08:10 Dose: 80 mg Calcium Carbonate (Calcium Carbonate/Vitamin D 1250 Mg-200 Unit) 1 tab PO BID [facility] Last Admin: 07/21/17 20:20 Dose: 1 tab Docusate Sodium (Colace) 100 mg PO BID PRN PRN Reason: Constipation Enoxaparin Sodium (Lovenox) 40 mg SUBCUT DAILY [facility] Last Admin: 07/21/17 08:12 Dose: 40 mg Famotidine (Pepcid) 20 mg PO DAILY [facility] Last Admin: 07/21/17 08:11 Dose: 20 mg Furosemide (Lasix) 10 mg PO TIDMEALS [facility] Last Admin: 07/21/17 17:47 Dose: 10 mg Glipizide (Glucotrol) 7.5 mg PO BIDMEALS [facility] Last Admin: 07/21/17 17:48 Dose: 7.5 mg Morphine Sulfate (Morphine) 2 mg IVPUSH Q4H PRN PRN Reason: Pain (severe 7-10) Ondansetron HCl (Zofran Odt) 4 mg PO Q4H PRN PRN Reason: nausea, able to take PO Phenytoin Sodium (Phenytoin) 100 mg PO TID [facility] Last Admin: 07/21/17 20:20 Dose: 100 mg Polyethylene Glycol (Miralax) 17 gm PO DAILY PRN PRN Reason: Constipation Potassium Chloride (Klor-Con 10) 10 meq PO TIDMEALS [facility] Last Admin: 07/21/17 17:47 Dose: 10 meq Quetiapine Fumarate (Seroquel) 50 mg PO BEDTIME [facility] Last Admin: 07/21/17 20:19 Dose: 50 mg Discontinued Medications Hydrocodone Bitart/Acetaminophen (Prather 325-5 Mg) 1 tab PO ONETIME ONE Stop: 07/20/17 15:22 Last Admin: 07/20/17 15:27 Dose: 1 tab Clotrimazole (Lotrimin Af 1% Crm) gm TOP BID [facility] Furosemide (Lasix) 20 mg PO DAILY [facility] Glipizide (Glucotrol) 5 mg PO BID [facility] Ibuprofen (Motrin) 400 mg PO ONETIME ONE Stop: 07/20/17 15:22 Last Admin: 07/20/17 15:28 Dose: 400 mg Prednisone (Prednisone) 10 mg PO DAILY [facility] - Exam General: Alert, Oriented, Cooperative, No Acute Distress, Mild Distress, Other ( Laying comfortable in bed). No: Moderate Distress, Severe Distress, Sedated, Lethargic HEENT: Pupils Equal, Pupils Reactive, EOMI, Mucous Membr. Moist/[place] Neck: Supple, Trachea Midline, No JVD Lungs: Clear to Auscultation, Normal Respiratory Effort Cardiovascular: Regular Rate, Regular Rhythm GI/Abdominal Exam: Normal Bowel Sounds, Soft, Non-Tender, No Organomegaly, No Distention, No Abnormal Bruit, No Mass Back Exam: Normal Inspection, Full Range of Motion Extremities: Normal Capillary Refill, Pedal Edema, Other (Left knee is in immobilizer) Skin: Dry, Intact. No: Rash Neurological: No New Focal Deficit Psy/Mental Status: Alert, Normal Affect, Normal Mood - Problem List & Annotations (1) Diabetes mellitus SNOMED Code(s): 43783642 Code(s): E11.9 - TYPE 2 DIABETES MELLITUS WITHOUT COMPLICATIONS Status: Chronic Current Visit: Yes (2) Seizure disorder SNOMED Code(s): 983921382 Code(s): G40.909 - EPILEPSY, UNSP, NOT INTRACTABLE, WITHOUT STATUS EPILEPTICUS Status: Chronic Current Visit: Yes (3) Psoriasis SNOMED Code(s): 0872021 Code(s): L40.9 - PSORIASIS, UNSPECIFIED Status: Chronic Current Visit: Yes (4) History of CVA (cerebrovascular accident) SNOMED Code(s): 863034964 Code(s): Z86.73 - PRSNL HX OF TIA (TIA), AND CEREB INFRC W/O RESID DEFICITS Status: Chronic Current Visit: Yes (5) History of congestive heart failure SNOMED Code(s): 577250488 Code(s): Z86.79 - PERSONAL HISTORY OF OTHER DISEASES OF THE CIRCULATORY SYSTEM Status: Chronic Current Visit: Yes (6) Left knee pain SNOMED Code(s): 63053736 Code(s): M25.562 - PAIN IN LEFT KNEE Status: Acute Priority: High Current Visit: Yes Qualifiers: Chronicity: acute Qualified Code(s): M25.562 - Pain in left knee - Problem List Review Problem List Initiated/Reviewed/Updated: Yes - My Orders Last 24 Hours: My Active Orders 07/21/17 10:39 Ice Therapy [OM.PC] Routine 07/21/17 10:40 Consult to Ed Educational Aide [CONS] Routine - Plan Plan:: Impression: 77-year-old female with the above past medical history presented with nontraumatic left knee pain and not able to bear weight. CT scan is concerning for loose objects in the knee. I wonder if she has meniscus injury. Patient lives by herself and not able to take care of herself due to her knee problem Acute problem list Left knee pain Left degenerative meniscus tear Chronic problem list Seizure disorder Diabetes mellitus Congestive heart failure, no exacerbation Psoriasis History of colon cancer Plan: Continue Tylenol, hydrocodone, morphine as needed for pain control -physical and occupational therapy to evaluate and treat today. 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 Dixon from orthopedics at [facility] on 2016 over the phone who reviewed the CT scan of left knee and believed that patient had left degenerative meniscus tear and recommended Icing, NSAIDs, immobilizer, walker, physical therapy, and slowly bearing weight as tolerated on left lower extremity. Patient denies hx of kidney disease or peptic ulcer disease -Start Naprosyn 250 mg every 12 hours Continue same medications for her chronic problems as per orders Do basic blood work tomorrow Lovenox for DVT prophylaxis Patient wants to be DNR for CODE STATUS Plan of care was discussed with patient and she verbalized understanding and agreed with
[2017-07-22] MEDS: atorvaSTATin 20 MG Tab PO SCH (10:23)
[2017-07-22] MEDS: Furosemide 20 MG Tab PO SCH ×3 (10:24→17:12)
[2017-07-22] MEDS: Calcium Carbonate/Vitamin D3 1250 MG-200 Unit Tab PO SCH ×2 (10:25→20:20)
[2017-07-22] MEDS: Famotidine 20 MG Tab PO SCH (10:25)
[2017-07-22] MEDS: Aspirin 81 MG Tab.Chew PO SCH (10:25)
[2017-07-22] MEDS: Naproxen 250 MG Tab PO SCH ×2 (10:25→20:20)
[2017-07-22] MEDS: Phenytoin 100 MG Cap.ER PO SCH ×3 (10:25→20:19)
[2017-07-22] MEDS: Potassium Chloride 10 MEQ Tab.ER PO SCH ×3 (10:26→17:13)
[2017-07-22] MEDS: glipiZIDE 5 MG Tab PO SCH ×2 (10:26→17:13)
[2017-07-22] MEDS: Enoxaparin 40 MG/0.4 ML Syringe SUBCUT SCH (10:27)
[2017-07-22] MEDS: QUEtiapine 25 MG Tab PO SCH (20:20)
[2017-07-23] MEDS: glipiZIDE 5 MG Tab PO SCH (08:42)
[2017-07-23] MEDS: Potassium Chloride 10 MEQ Tab.ER PO SCH ×2 (08:42→12:31)
[2017-07-23] MEDS: atorvaSTATin 20 MG Tab PO SCH (08:45)
[2017-07-23] MEDS: Naproxen 250 MG Tab PO SCH (08:45)
[2017-07-23] MEDS: Phenytoin 100 MG Cap.ER PO SCH (08:46)
[2017-07-23] MEDS: Famotidine 20 MG Tab PO SCH (08:47)
[2017-07-23] MEDS: Furosemide 20 MG Tab PO SCH ×2 (08:47→12:29)
[2017-07-23] MEDS: Aspirin 81 MG Tab.Chew PO SCH (08:49)
[2017-07-23] MEDS: Enoxaparin 40 MG/0.4 ML Syringe SUBCUT SCH (08:50)
--- NOTE | 2017-07-23 09:06 | PCM.DCSUM1 ---
Discharge Summary - Hospital Course Free Text/Narrative:: 77-year-old female with past medical history of seizure disorder, psoriasis, hyperlipidemia, diabetes mellitus, CVA, colon cancer, congestive heart failure, carotid artery disease presented to the emergency room after having left knee pain on 07/20/17. Patient stated that she was getting out of her friend's car/ sedan and after getting out she realized that she was not able to bear weight on her left knee due to severe pain. Patient denied twisting her knee, hearing or feeling popping of the knee, injuring the knee, falling, or any other symptoms or injuries. Patient denied dizziness, headache, upper respiratory symptoms, chest pain, shortness of breath, palpitation, nausea, vomiting, fever , chills, abdominal pain, diarrhea, constipation, insulin, black stool, lower extremities edema, any other symptoms or concerns. 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 7 mm intra-articular loose body in the posterior medial compartment of the left knee. No sign of fracture or dislocation. Vascular calcifications and post femoral and popliteal arteries. I spoke to Dr. Dixon from orthopedics at [facility] on 07/21/2017 over the phone who reviewed the CT scan of left knee and believed that patient had left degenerative meniscus tear and recommended Icing, NSAIDs, immobilizer, walker, physical therapy, and slowly bearing weight as tolerated on left lower extremity. Patient denies hx of kidney disease or peptic ulcer disease. She was evaluated by physical therapy. Physical therapist and patient herself stated that she has been walking, using walker, and bearing weight on her left lower extremity. She will be discharged home on home health for physical therapy. Naprosyn 250 mg twice a day was started yesterday. I gave her prescription of Naprosyn for 5 days until she sees her PCP - Discharge Data Discharge Date: 07/23/17 Discharge Disposition: Home, W Home Health Agency 06 Condition: Fair - Discharge Diagnosis/Problem(s) (1) Diabetes mellitus SNOMED Code(s): 96177858 ICD Code: E11.9 - TYPE 2 DIABETES MELLITUS WITHOUT COMPLICATIONS Status: Chronic Current Visit: Yes (2) Seizure disorder SNOMED Code(s): 789328965 ICD Code: G40.909 - EPILEPSY, UNSP, NOT INTRACTABLE, WITHOUT STATUS EPILEPTICUS Status: Chronic Current Visit: Yes (3) Psoriasis SNOMED Code(s): 2499700 ICD Code: L40.9 - PSORIASIS, UNSPECIFIED Status: Chronic Current Visit: Yes (4) History of CVA (cerebrovascular accident) SNOMED Code(s): 788988642 ICD Code: Z86.73 - PRSNL HX OF TIA (TIA), AND CEREB INFRC W/O RESID DEFICITS Status: Chronic Current Visit: Yes (5) History of congestive heart failure SNOMED Code(s): 076772204 ICD Code: Z86.79 - PERSONAL HISTORY OF OTHER DISEASES OF THE CIRCULATORY SYSTEM Status: Chronic Current Visit: Yes (6) Left knee pain SNOMED Code(s): 69716373 ICD Code: M25.562 - PAIN IN LEFT KNEE Status: Acute Priority: High Current Visit: Yes Qualifiers: Chronicity: acute Qualified Code(s): M25.562 - Pain in left knee - Patient Summary/Data Consults: Consultations 07/21/17 10:40 Consult to Inventory Technician [CONS] Routine - Patient Instructions Diet: Heart Healthy Diet Activity: Apply Ice (to left knee, 20 minutes every 4 hours), As Tolerated (use left knee immobolizer and walker) Driving: Do Not Drive Showering/Bathing: May Shower Notify Provider of: Fever, Increased Pain, Swelling and Redness, Nausea and/or Vomiting - Discharge Plan Prescriptions/Med Rec: Naproxen [Naprosyn] 250 mg PO Q12HR #10 tablet Acetaminophen [Tylenol] 650 mg PO Q4H PRN #30 tablet PRN Reason: left knee pain Home Medications: Home Meds Aspirin [Talya Chewable Aspirin] 81 mg PO DAILY 03/26/14 [History] Calcium Carbonate/Vitamin D3 [Calcium 500 + Vit D Caplet] 1 tab PO BID 09/18/15 [History] Famotidine [Take Home: Famotidine 20 MG, 3 Tab Pack] 20 mg PO DAILY 09/18/15 [ History] Furosemide 20 mg PO DAILY 09/18/15 [History] Phenytoin Sodium Extended [Dilantin] 100 mg PO TID 09/18/15 [History] Potassium Chloride 10 meq PO TID 09/18/15 [History] QUEtiapine Fumarate [Quetiapine Fumarate] 50 mg PO BEDTIME 09/18/15 [History] atorvaSTATin [Lipitor] 80 mg PO DAILY 09/18/15 [History] glipiZIDE [Glipizide] 7.5 mg PO BIDMEALS 09/18/15 [History] Acetaminophen [Tylenol] 650 mg PO Q4H PRN #30 tablet 07/22/17 [Rx] Naproxen [Naprosyn] 250 mg PO Q12HR #10 tablet 07/22/17 [Rx] Patient Handouts: Meniscus Tear With Phase I Rehab-SportsMed, Naproxen Sodium oral tablet, extended-release, Acetaminophen tablets or caplets, Knee Pain, Easy -to-Read - General Info Date of Service: 07/23/17 - Review of Systems General: Reports: No Symptoms HEENT: Reports: No Symptoms Pulmonary: Reports: No Symptoms Cardiovascular: Reports: No Symptoms Gastrointestinal: Reports: No Symptoms Genitourinary: Reports: No Symptoms Musculoskeletal: Reports: Other (Left knee pain which got much better) Skin: Reports: No Symptoms Neurological: Reports: No Symptoms Psychiatric: Reports: No Symptoms - Patient Data Vitals - Most Recent: Last Vital Signs Temp 36.6 C 07/23/17 07:00 Pulse 68 07/23/17 07:00 Resp 18 07/23/17 07:00 BP 150/65 H 07/23/17 07:00 Pulse Ox 96 07/23/17 07:00 Weight - Most Recent: 81.102 kg I&O - Last 24 hours: Intake & Output 07/22/17 07/23/17 07/23/17 22:59 06:59 14:59 Intake Total 420 Balance 420 Lab Results - Last 24 hrs: Laboratory Results - last 24 hr 07/23/17 Range/Units 07:51 POC Glucose 104 (83-110) mg/dl Med Orders - Current: Current Medications Acetaminophen (Tylenol) 650 mg PO Q4H PRN PRN Reason: Pain (Mild 1-3)/fever Last Admin: 07/21/17 08:11 Dose: 650 mg Hydrocodone Bitart/Acetaminophen ([place] 325-10 Mg) 1 tab PO Q4H PRN PRN Reason: Pain (moderate 4-6) Last Admin: 07/21/17 16:15 Dose: 1 tab Aspirin (Aspirin) 81 mg PO DAILY [facility] Last Admin: 07/23/17 08:49 Dose: 81 mg Atorvastatin Calcium (Lipitor) 80 mg PO DAILY [facility] Last Admin: 07/23/17 08:45 Dose: 80 mg Calcium Carbonate (Calcium Carbonate/Vitamin D 1250 Mg-200 Unit) 1 tab PO BID [facility] Last Admin: 07/22/17 20:20 Dose: 1 tab Docusate Sodium (Colace) 100 mg PO BID PRN PRN Reason: Constipation Enoxaparin Sodium (Lovenox) 40 mg SUBCUT DAILY [facility] Last Admin: 07/23/17 08:50 Dose: 40 mg Famotidine (Pepcid) 20 mg PO DAILY [facility] Last Admin: 07/23/17 08:47 Dose: 20 mg Furosemide (Lasix) 10 mg PO TIDMEALS [facility] Last Admin: 07/23/17 08:47 Dose: 10 mg Glipizide (Glucotrol) 7.5 mg PO BIDMEALS [facility] Last Admin: 07/23/17 08:42 Dose: 7.5 mg Morphine Sulfate (Morphine) 2 mg IVPUSH Q4H PRN PRN Reason: Pain (severe 7-10) Naproxen (Naprosyn) 250 mg PO Q12HR [facility] Last Admin: 07/23/17 08:45 Dose: 250 mg Ondansetron HCl (Zofran Odt) 4 mg PO Q4H PRN PRN Reason: nausea, able to take PO Phenytoin Sodium (Phenytoin) 100 mg PO TID [facility] Last Admin: 07/23/17 08:46 Dose: 100 mg Polyethylene Glycol (Miralax) 17 gm PO DAILY PRN PRN Reason: Constipation Potassium Chloride (Klor-Con 10) 10 meq PO TIDMEALS [facility] Last Admin: 07/23/17 08:42 Dose: 10 meq Quetiapine Fumarate (Seroquel) 50 mg PO BEDTIME [facility] Last Admin: 07/22/17 20:20 Dose: 50 mg Discontinued Medications Hydrocodone Bitart/Acetaminophen ([place] 325-5 Mg) 1 tab PO ONETIME ONE Stop: 07/20/17 15:22 Last Admin: 07/20/17 15:27 Dose: 1 tab Clotrimazole (Lotrimin Af 1% Crm) gm TOP BID [facility] Furosemide (Lasix) 20 mg PO DAILY [facility] Glipizide (Glucotrol) 5 mg PO BID [facility] Ibuprofen (Motrin) 400 mg PO ONETIME ONE Stop: 07/20/17 15:22 Last Admin: 07/20/17 15:28 Dose: 400 mg Prednisone (Prednisone) 10 mg PO DAILY [facility] - Exam General: Reports: Alert, Oriented, Cooperative, No Acute Distress. Denies: Mild Distress, Moderate Distress, Severe Distress, Sedated, Lethargic HEENT: Reports: Pupils Equal, Pupils Reactive, EOMI, Mucous Membr. Moist/[place] Neck: Reports: Supple, Trachea Midline, No JVD Lungs: Reports: Clear to Auscultation, Normal Respiratory Effort Cardiovascular: Reports: Regular Rate, Regular Rhythm GI/Abdominal Exam: Normal Bowel Sounds, Soft, Non-Tender, No Organomegaly, No Distention, No Abnormal Bruit (Female) Exam: Deferred Rectal (Female) Exam: Deferred Back Exam: Reports: Normal Inspection, Full Range of Motion Extremities: Normal Inspection, Normal Range of Motion, No Pedal Edema, Normal Capillary Refill, Other (Left knee tenderness improved. No knee effusion or redness.) Skin: Reports: Dry, Intact. Denies: Rash Neurological: Reports: No New Focal Deficit Psy/Mental Status: Reports: Alert, Normal Affect, Normal Mood *Q Meaningful Use (DIS) - VTE *Q VTE Criteria *Q: - Stroke *Q Stroke Criteria *Q: - AMI *Q AMI Criteria *Q:
[2017-07-23] MEDS: Calcium Carbonate/Vitamin D3 1250 MG-200 Unit Tab PO SCH (09:30)
[2017-07-23 11:08] VITALS: BP 156/63
== END 2017-07-23 13:05 | disposition home health service (06) ==
LOC: DL.ED 15:06 → UNDOADMOB 16:48 → DL.MS 16:48
PROVIDERS: ADMIT Family Medicine; ATTEND Family Medicine
DX: M17.0 Bilateral primary osteoarthritis of knee (principal); M23.42 Loose body in knee, left knee; M23.307 Other meniscus derangements, unspecified meniscus, left knee; E11.9 Type 2 diabetes mellitus without complications; G40.909 Epilepsy, unspecified, not intractable, without status epilepticus; L40.9 Psoriasis, unspecified; I50.9 Heart failure, unspecified; I25.10 Atherosclerotic heart disease of native coronary artery without angina pectoris; E78.00 Pure hypercholesterolemia, unspecified; K21.9 Gastro-esophageal reflux disease without esophagitis; G43.909 Migraine, unspecified, not intractable, without status migrainosus; Z86.73 Personal history of transient ischemic attack (TIA), and cerebral infarction without residual deficits; Z85.038 Personal history of other malignant neoplasm of large intestine; Z87.01 Personal history of pneumonia (recurrent); Z79.82 Long term (current) use of aspirin; Z79.84 Long term (current) use of oral hypoglycemic drugs; Z79.899 Other long term (current) drug therapy; Z98.49 Cataract extraction status, unspecified eye; Z98.890 Other specified postprocedural states
CPT/HCPCS: 36415; 73700; 80048; 82962; 85025; 96372; 97162; 97166; 99285; A9270; G0378; J1650

== ENCOUNTER 2017-11-19 09:45 | Emergency (ER) | payer MEDICARE, BC, MEDICAID ==
--- NOTE | 2017-11-19 10:06 | EDM.PDOC ---
ED HPI GENERAL MEDICAL PROBLEM - General Chief Complaint: Gastrointestinal Problem Stated Complaint: SICK. IN BY [facility] AMB Time Seen by Provider: 11/19/17 10:05 Source of Information: Reports: Patient History Limitations: Reports: No Limitations - History of Present Illness INITIAL COMMENTS - FREE TEXT/NARRATIVE: This 77 yo female patient was brought to the ED by [facility] due to not feeling well and not having a bowel movement in the past 4 days. The patient reports she has been eating and drinking normally, but continues to have lower abdominal pain. The patient reports she has had constipation in the past with similar symptoms. The patient reports she may have taken something on Saturday for constipation ( a pill was given to her by the person that cleans her house). The patient reports she has not taken anything else. The patient states that she "thinks that she should be admitted until she feels better." The patient reports she has been taking all of her medications as prescribed. Onset Date: 11/16/17 Duration: Constant, Getting Worse Location: Reports: Abdomen (diffuse abdominal pain) Quality: Reports: Dull, Pressure Severity: Moderate Improves with: Reports: None Worsens with: Reports: None Context: Reports: Other Associated Symptoms: Reports: No Other Symptoms Lower Abdomen Pain Score (Numeric/FACES): 2 - Related Data Allergies Allergy/AdvReac Type Severity Reaction Status Date / Time Tetanus Vaccines and Toxoid Allergy Severe Edema Verified 11/19/17 09:45 [Tetanus Vaccines & Toxoid] amoxicillin trihydrate Allergy Intermediate Rash Verified 11/19/17 09:45 [From Augmentin] doxycycline Allergy Intermediate Rash Verified 11/19/17 09:45 potassium clavulanate Allergy Intermediate Rash Verified 11/19/17 09:45 [From Augmentin] Home Meds: Home Meds Aspirin [Talya Chewable Aspirin] 81 mg PO DAILY 03/26/14 [History] Calcium Carbonate/Vitamin D3 [Calcium 500 + Vit D Caplet] 1 tab PO BID 09/18/15 [History] Famotidine [Take Home: Famotidine 20 MG, 3 Tab Pack] 20 mg PO DAILY 09/18/15 [ History] Furosemide 20 mg PO DAILY 09/18/15 [History] Phenytoin Sodium Extended [Dilantin] 100 mg PO TID 09/18/15 [History] Potassium Chloride 10 meq PO TID 09/18/15 [History] QUEtiapine Fumarate [Quetiapine Fumarate] 50 mg PO BEDTIME 09/18/15 [History] atorvaSTATin [Lipitor] 80 mg PO DAILY 09/18/15 [History] glipiZIDE [Glipizide] 7.5 mg PO BIDMEALS 09/18/15 [History] Acetaminophen [Tylenol] 650 mg PO Q4H PRN #30 tablet 07/22/17 [Rx] Naproxen [Naprosyn] 250 mg PO Q12HR #10 tablet 07/22/17 [Rx] Past Medical History HEENT History: Reports: Cataract, Macular Degeneration Cardiovascular History: Reports: CAD, Heart Murmur, High Cholesterol Respiratory History: Reports: Pneumonia, Recurrent, SOB Gastrointestinal History: Reports: GERD Genitourinary History: Reports: None, Urinary Incontinence, Other (See Below) Other Genitourinary History: stress 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 Musculoskeletal History: Reports: Arthritis, Fracture Neurological History: Reports: CVA, Migraines, Seizure, Other (See Below) Other Neuro History: RIGHT-SIDED WEAKNESS Endocrine/Metabolic History: Reports: Diabetes, Type II, Obesity/BMI 30+ Oncologic (Cancer) History: Reports: Colon Dermatologic History: Reports: Psoriasis Other Dermatologic History: current rash - Infectious Disease History Infectious Disease History: Reports: Chicken Pox, Shingles - Past Surgical History HEENT Surgical History: Reports: Cataract Surgery Cardiovascular Surgical History: Reports: Carotid Endarterectomy Respiratory Surgical History: Reports: None GI Surgical History: Reports: Colonoscopy, Colostomy, Other (See Below) Other GI Surgeries/Procedures: COLOSTOMY REVERSED Female Surgical History: Reports: None Neurological Surgical History: Reports: None Musculoskeletal Surgical History: Reports: None Oncologic Surgical History: Reports: Other (See Below) Dermatological Surgical History: Reports: None Social & Family History - Family History Family Medical History: Noncontributory Endocrine/Metabolic: Reports: Diabetes, type II Oncologic: Reports: Other (See Below) Other Oncologic Family History: brother had cancer - Tobacco Use Smoking Status *Q: Former Smoker Used Tobacco, but Quit: Yes Month Tobacco Last Used: ? Second Hand Smoke Exposure: No - Caffeine Use Caffeine Use: Reports: Coffee - Alcohol Use Days Per Week of Alcohol Use: 0 - Recreational Drug Use Recreational Drug Use: No ED ROS GENERAL - Review of Systems Review Of Systems: ROS reveals no pertinent complaints other than HPI. ED EXAM, GI/ABD - Physical Exam Exam: See Below Exam Limited By: No Limitations General Appearance: Alert, WD/WN, Anxious, Mild Distress Eyes: Bilateral: Normal Appearance, EOMI Ears: Normal External Exam, Normal Canal, Hearing Grossly Normal, Normal TMs Nose: Normal Inspection, Normal Mucosa, No Blood Throat/Mouth: Normal Inspection, Normal Lips, Normal Teeth, Normal Gums, Normal Oropharynx, Normal Voice, No Airway Compromise Head: Atraumatic, Normocephalic Neck: Normal Inspection, Supple, Non-Tender, Full Range of Motion Respiratory/Chest: No Respiratory Distress, Lungs Clear, Normal Breath Sounds, No Accessory Muscle Use, Chest Non-Tender Cardiovascular: Normal Peripheral Pulses, Regular Rate, Rhythm, No Gallop, No JVD, No Rub, Systolic Murmur GI/Abdominal Exam: Normal Bowel Sounds, No Organomegaly, No Distention, No Abnormal Bruit, No Mass, Pelvis Stable, Tender (diffuse lower abdominal tenderness to palpation) (Female) Exam: Deferred, Vaginal Tears Back Exam: Normal Inspection, Full Range of Motion, NT Extremities: Normal Inspection, Normal Range of Motion, Non-Tender, Normal Capillary Refill, Pedal Edema (2+) Neurological: Alert, Oriented, CN II-XII Intact, Normal Cognition, Normal Gait, Normal Reflexes, No Motor/Sensory Deficits Psychiatric: Normal Affect, Normal Mood Skin Exam: Warm, Dry, Intact, Normal Color, No Rash Lymphatic: No Adenopathy Course - Vital Signs Last Recorded V/S: Last Vital Signs Temp 36.8 C 11/19/17 09:46 Pulse 76 11/19/17 09:46 Resp 14 11/19/17 09:46 BP 222/89 H 11/19/17 09:46 Pulse Ox 100 11/19/17 09:46 - Orders/Labs/Meds Orders: Active Orders 24 hr Category Date Time Status Enema [RC] ASDIRECTED Care 11/19/17 11:22 Ordered Labs: Laboratory Tests 11/19/17 11/19/17 11/19/17 Range/Units 10:15 10:20 10:20 WBC 11.8 H (5.0-10.0) 10^3/uL RBC 4.63 (4.2-5.4) 10^6/uL Hgb 12.6 (12.0-16.0) g/dL Hct 39.1 (37.0-47.0) % MCV 84.4 D (80-100) fL MCH 27.2 (27.0-34.0) pg MCHC 32.2 L (33.0-35.0) g/dL Plt Count 249 (150-450) 10^3/uL Neut % (Auto) 61.6 (42.2-75.2) % Lymph % (Auto) 22.9 (20.5-50.1) % [place] % (Auto) 12.7 H (2-8) % Eos % (Auto) 2.5 (1.0-3.0) % Baso % (Auto) 0.3 (0.0-1.0) % Sodium 137 (135-145) mmol/L Potassium 3.5 L (3.6-5.0) mmol/L Chloride 101 (101-111) mmol/L Carbon Dioxide 24.0 (21.0-31.0) mmol/L Anion Gap 15.5 BUN 16 (7-18) mg/dL Creatinine 0.7 (0.6-1.3) mg/dL Est Cr Clr Drug Dosing 51.54 mL/min Estimated GFR (MDRD) > 60 BUN/Creatinine Ratio 22.85 Glucose 70 L (74-105) mg/dL Calcium 9.0 (8.4-10.2) mg/dl Total Bilirubin 0.3 (0.2-1.0) mg/dL AST 26 (10-42) IU/L ALT 18 (10-60) IU/L Alkaline Phosphatase 212 H (42-121) IU/L Total Protein 7.3 (6.7-8.2) g/dl Albumin 3.8 (3.2-5.5) g/dl Globulin 3.5 Albumin/Globulin Ratio 1.09 Urine Color Yellow (YELLOW) Urine Appearance Clear (CLEAR) Urine pH 7.0 (5.0-9.0) Ur Specific [place] 1.015 (1.005-1.030) Urine Protein Negative (NEGATIVE) Urine Glucose (UA) Negative (NEGATIVE) Urine Ketones Negative (NEGATIVE) Urine Occult Blood Negative (NEGATIVE) Urine Nitrite Negative (NEGATIVE) Urine Bilirubin Negative (NEGATIVE) Urine Urobilinogen 0.2 (0.2-1.0) mg/dL Ur Leukocyte Esterase Small H (NEGATIVE) Urine RBC 0-5 /HPF Urine WBC 5-10 H (0-5/HPF) /HPF Ur Epithelial Cells Moderate H /HPF Urine Bacteria Many H (0-FEW/HPF) /HPF Departure - Departure Time of Disposition: 12:06 Disposition: Home, Self-Care 01 Condition: Fair Clinical Impression: Constipation - Discharge Information Instructions: Constipation, Adult, [id number] Forms: ED Department Discharge Care Plan Goals: The patient and caregiver were advised of the examination, lab and x-ray results. The patient was given IV fluids (started by EMS) and an enema with good results. The patient reports relief after the enema. The patient was encouraged to take a stool softener for the next 4 days and drink normal amounts of fluid. If the patient has any additional symptoms or concerns, the patient should follow-up with her primary care facility or return to the emergency department. - My Orders Last 24 Hours: My Active Orders 11/19/17 11:22 Enema [RC] ASDIRECTED - Assessment/Plan Last 24 Hours: My Active Orders 11/19/17 11:22 Enema [RC] ASDIRECTED
[2017-11-19 10:45] LABS: ANION GAP 15.5; CHLORIDE,CL 101 mmol/L (101-111); SODIUM,NA 137 mmol/L (135-145)
[2017-11-19 12:17] VITALS: BP 167/66
== END 2017-11-19 12:30 | disposition home or self-care (01) ==
LOC: DL.ED 09:45
DX: K59.00 Constipation, unspecified (principal); I25.10 Atherosclerotic heart disease of native coronary artery without angina pectoris; E78.00 Pure hypercholesterolemia, unspecified; K21.9 Gastro-esophageal reflux disease without esophagitis; E11.9 Type 2 diabetes mellitus without complications; L40.9 Psoriasis, unspecified; Z87.891 Personal history of nicotine dependence; Z79.82 Long term (current) use of aspirin; Z79.84 Long term (current) use of oral hypoglycemic drugs; Z79.899 Other long term (current) drug therapy; Z88.1 Allergy status to other antibiotic agents; Z88.7 Allergy status to serum and vaccine
CPT/HCPCS: 36415; 74019; 80053; 81001; 85025; 99283

== ENCOUNTER 2018-05-31 16:26 | Inpatient (IN) | payer MEDICARE, BC, MEDICAID ==
--- NOTE | 2018-05-31 16:29 | EDM.PDOC ---
ED HPI GENERAL MEDICAL PROBLEM - General Chief Complaint: Gastrointestinal Problem Stated Complaint: AMBULANCE / STOMACH PAIN Time Seen by Provider: 05/31/18 16:29 Source of Information: Reports: Patient, EMS, Family, Old Records, RN, RN Notes Reviewed History Limitations: Reports: No Limitations - History of Present Illness INITIAL COMMENTS - FREE TEXT/NARRATIVE: Pt arrives to ER from home by [facility] with c/o constipation with no BM x4 days, with the exception of a very small hard stool after much effort this morning. Pt states she was give a medication in clinic for constipation, but she does not recall what it was and that it did not work. She admits to nausea, and feeling that her abdomen is distended. She denies fever. Admits to "profound generalized weakness", chills, and urinary urgency and discomfort. 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 Medication(s) Abdominal Pain Score (Numeric/FACES): 7 - Related Data Allergies Allergy/AdvReac Type Severity Reaction Status Date / Time Tetanus Vaccines and Toxoid Allergy Severe Edema Verified 05/31/18 16:35 [Tetanus Vaccines & Toxoid] amoxicillin trihydrate Allergy Intermediate Rash Verified 05/31/18 16:35 [From Augmentin] doxycycline Allergy Intermediate Rash Verified 05/31/18 16:35 potassium clavulanate Allergy Intermediate Rash Verified 05/31/18 16:35 [From Augmentin] Home Meds: Home Meds Aspirin [Talya Chewable Aspirin] 81 mg PO DAILY 03/26/14 [History] Calcium Carbonate/Vitamin D3 [Calcium 500 + Vit D Caplet] 1 tab PO BID 09/18/15 [History] Famotidine [Take Home: Famotidine 20 MG, 3 Tab Pack] 20 mg PO DAILY 09/18/15 [ History] Furosemide 20 mg PO DAILY 09/18/15 [History] Phenytoin Sodium Extended [Dilantin] 100 mg PO DAILY 09/18/15 [History] Potassium Chloride 20 meq PO DAILY 09/18/15 [History] QUEtiapine Fumarate [Quetiapine Fumarate] 50 mg PO BEDTIME 09/18/15 [History] atorvaSTATin [Lipitor] 80 mg PO DAILY 09/18/15 [History] glipiZIDE [Glipizide] 7.5 mg PO BIDMEALS 09/18/15 [History] Acetaminophen [Tylenol] 650 mg PO Q4H PRN #30 tablet 07/22/17 [Rx] Phenytoin Sodium Extended [Dilantin] 200 mg PO DAILY 05/31/18 [History] Potassium Chloride 10 meq PO DAILY 05/31/18 [History] Past Medical History HEENT History: Reports: Cataract, Macular Degeneration Cardiovascular History: Reports: CAD, Heart Murmur, High Cholesterol Respiratory History: Reports: Pneumonia, Recurrent, SOB Gastrointestinal History: Reports: GERD Genitourinary History: Reports: None, Urinary Incontinence, Other (See Below) Other Genitourinary History: stress 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 Musculoskeletal History: Reports: Arthritis, Fracture Neurological History: Reports: CVA, Migraines, Seizure, Other (See Below) Other Neuro History: RIGHT-SIDED WEAKNESS Endocrine/Metabolic History: Reports: Diabetes, Type II, Obesity/BMI 30+ Oncologic (Cancer) History: Reports: Colon Dermatologic History: Reports: Psoriasis Other Dermatologic History: current rash - Infectious Disease History Infectious Disease History: Reports: Chicken Pox, Shingles - Past Surgical History HEENT Surgical History: Reports: Cataract Surgery Cardiovascular Surgical History: Reports: Carotid Endarterectomy Respiratory Surgical History: Reports: None GI Surgical History: Reports: Colonoscopy, Colostomy, Other (See Below) Other GI Surgeries/Procedures: COLOSTOMY REVERSED Female Surgical History: Reports: None Neurological Surgical History: Reports: None Musculoskeletal Surgical History: Reports: None Oncologic Surgical History: Reports: Other (See Below) Dermatological Surgical History: Reports: None Social & Family History - Family History Family Medical History: Noncontributory Endocrine/Metabolic: Reports: Diabetes, type II Oncologic: Reports: Other (See Below) Other Oncologic Family History: brother had cancer - Caffeine Use Caffeine Use: Reports: None - Living Situation & Occupation Living situation: Reports: Alone Occupation: Retired ED ROS GENERAL - Review of Systems Review Of Systems: ROS reveals no pertinent complaints other than HPI. ED EXAM, GI/ABD - Physical Exam Exam: See Below Exam Limited By: No Limitations General Appearance: Alert, WD/WN, No Apparent Distress Eyes: Bilateral: Normal Appearance Nose: Normal Inspection Throat/Mouth: Normal Inspection, Normal Voice, No Airway Compromise Head: Atraumatic, Normocephalic Neck: Normal Inspection Respiratory/Chest: No Respiratory Distress, Lungs Clear, Normal Breath Sounds, No Accessory Muscle Use, Chest Non-Tender Cardiovascular: Regular Rate, Rhythm GI/Abdominal Exam: Normal Bowel Sounds, Soft, Tender (mild diffuse tenderness, no focal tenderness, no peritoneal signs). No: Guarding, Rigid, Rebound (Female) Exam: Deferred Rectal (Female) Exam: Deferred Back Exam: Normal Inspection Extremities: Normal Inspection, Normal Range of Motion, Non-Tender Neurological: Alert, Oriented, No Motor/Sensory Deficits, Other (generalized weakness without focal deficits) Psychiatric: Anxious Skin Exam: Warm, Dry, Intact, No Rash, Pallor Course - Vital Signs Last Recorded V/S: Last Vital Signs Temp 36.9 C 05/31/18 16:29 Pulse 90 05/31/18 16:29 Resp 16 05/31/18 16:29 BP 179/58 H 05/31/18 16:29 Pulse Ox 98 05/31/18 16:29 - Orders/Labs/Meds Orders: Active Orders 24 hr Category Date Time Status Enema [RC] ASDIRECTED Care 05/31/18 17:13 Active Peripheral IV Care [RC] . DIRECTED Care 05/31/18 17:46 Active CULTURE URINE [RM] Stat Lab 05/31/18 17:05 Received Hemoccult, Stool [OCCULT BLOOD DIAGNOSTIC] [OP] Stat Lab 05/31/18 17:12 Ordered UA W/MICROSCOPIC [URIN] Stat Lab 05/31/18 17:05 Ordered Sodium Chloride 0.9% [Saline Flush] Med 05/31/18 17:46 Active 10 ml FLUSH ASDIRECTED PRN Peripheral IV Insertion Adult [OM.PC] Stat Oth 05/31/18 17:46 Ordered Medication Orders Sodium Chloride (Saline Flush) 10 ml FLUSH ASDIRECTED PRN PRN Reason: Keep Vein Open Labs: Laboratory Tests 05/31/18 05/31/18 05/31/18 Range/Units 16:45 16:45 16:45 WBC 9.8 (5.0-10.0) 10^3/uL RBC 4.04 L (4.2-5.4) 10^6/uL Hgb 8.9 L D (12.0-16.0) g/dL Hct 30.4 L (37.0-47.0) % MCV 75.2 L D (80-100) fL MCH 22.0 L (27.0-34.0) pg MCHC 29.3 L (33.0-35.0) g/dL Plt Count 263 (150-450) 10^3/uL Neut % (Auto) 74.5 (42.2-75.2) % Lymph % (Auto) 14.1 L (20.5-50.1) % [place] % (Auto) 9.4 H (2-8) % Eos % (Auto) 1.8 (1.0-3.0) % Baso % (Auto) 0.2 (0.0-1.0) % Sodium 137 (135-145) mmol/L Potassium 4.1 (3.6-5.0) mmol/L Chloride 101 (101-111) mmol/L Carbon Dioxide 28.0 (21.0-31.0) mmol/L Anion Gap 12.1 BUN 11 (7-18) mg/dL Creatinine 0.7 (0.6-1.3) mg/dL Est Cr Clr Drug Dosing 51.54 mL/min Estimated GFR (MDRD) > 60 BUN/Creatinine Ratio 15.71 Glucose 194 H (74-105) mg/dL Calcium 8.4 (8.4-10.2) mg/dl Total Bilirubin 0.2 (0.2-1.0) mg/dL AST 29 (10-42) IU/L ALT 16 (10-60) IU/L Alkaline Phosphatase 167 H (42-121) IU/L Lactate Dehydrogenase 142 (91-180) IU/L Total Protein 6.5 L (6.7-8.2) g/dl Albumin 3.2 (3.2-5.5) g/dl Globulin 3.3 Albumin/Globulin Ratio 0.97 Urine Color (YELLOW) Urine Appearance (CLEAR) Urine pH (5.0-9.0) Ur Specific [place] (1.005-1.030) Urine Protein (NEGATIVE) Urine Glucose (UA) (NEGATIVE) Urine Ketones (NEGATIVE) Urine Occult Blood (NEGATIVE) Urine Nitrite (NEGATIVE) Urine Bilirubin (NEGATIVE) Urine Urobilinogen (0.2-1.0) mg/dL Ur Leukocyte Esterase (NEGATIVE) Urine RBC /HPF Urine WBC (0-5/HPF) /HPF Ur Epithelial Cells /HPF Urine Bacteria (0-FEW/HPF) /HPF 05/31/18 Range/Units 17:05 WBC (5.0-10.0) 10^3/uL RBC (4.2-5.4) 10^6/uL Hgb (12.0-16.0) g/dL Hct (37.0-47.0) % MCV (80-100) fL MCH (27.0-34.0) pg MCHC (33.0-35.0) g/dL Plt Count (150-450) 10^3/uL Neut % (Auto) (42.2-75.2) % Lymph % (Auto) (20.5-50.1) % [place] % (Auto) (2-8) % Eos % (Auto) (1.0-3.0) % Baso % (Auto) (0.0-1.0) % Sodium (135-145) mmol/L Potassium (3.6-5.0) mmol/L Chloride (101-111) mmol/L Carbon Dioxide (21.0-31.0) mmol/L Anion Gap BUN (7-18) mg/dL Creatinine (0.6-1.3) mg/dL Est Cr Clr Drug Dosing mL/min Estimated GFR (MDRD) BUN/Creatinine Ratio Glucose (74-105) mg/dL Calcium (8.4-10.2) mg/dl Total Bilirubin (0.2-1.0) mg/dL AST (10-42) IU/L ALT (10-60) IU/L Alkaline Phosphatase (42-121) IU/L Lactate Dehydrogenase (91-180) IU/L Total Protein (6.7-8.2) g/dl Albumin (3.2-5.5) g/dl Globulin Albumin/Globulin Ratio Urine Color Yellow (YELLOW) Urine Appearance Cloudy (CLEAR) Urine pH 7.0 (5.0-9.0) Ur Specific [place] 1.020 (1.005-1.030) Urine Protein Trace H (NEGATIVE) Urine Glucose (UA) Negative (NEGATIVE) Urine Ketones Negative (NEGATIVE) Urine Occult Blood Moderate H (NEGATIVE) Urine Nitrite Negative (NEGATIVE) Urine Bilirubin Negative (NEGATIVE) Urine Urobilinogen 0.2 (0.2-1.0) mg/dL Ur Leukocyte Esterase Large H (NEGATIVE) Urine RBC 0-5 /HPF Urine WBC >100 H (0-5/HPF) /HPF Ur Epithelial Cells Moderate H /HPF Urine Bacteria Many H (0-FEW/HPF) /HPF Meds: Medications Generic Name Dose Route Start Last Admin Trade Name Freq PRN Reason Stop Dose Admin Sodium Chloride 10 ml 05/31/18 17:46 Saline Flush FLUSH ASDIRECTED PRN Keep Vein Open Discontinued Medications Generic Name Dose Route Start Last Admin Trade Name Freq PRN Reason Stop Dose Admin Ceftriaxone Sodium 1 gm 05/31/18 17:46 Rocephin IVPUSH 05/31/18 17:47 ONETIME ONE - Radiology Interpretation Free Text/Narrative:: [facility] Final Radiology Report Call: [phone] assistance Online chat: [email or web address] Name: KACI EVANS Age: 77Years F Date: 05/31/2018 SSN: -- : [id number] Study: XR ABDOMEN 3 OR MORE VIEWS Requesting Physician: FLORENCE HOLDEN Images: 3 Addl Studies: Provided Clinical History: Contrast: Contrast Medium: Contrast Amount: Contrast Method: CONFIDENTIALITY STATEMENT This report is intended only for use by the referring physician, and only in accordance with law. If you received this in error, call [phone]. Page 1 of 1 EXAM: XR Abdomen, 3 or More Views CLINICAL HISTORY: 77 years old, female; Signs and symptoms; Constipation and other: Pain/ discomfort, says she feels distended TECHNIQUE: Frontal view of the abdomen/pelvis with upright view of the abdomen and one or more additional views. COMPARISON: CR - Abdomen 2V AP Flat Upright 11/19/2017 10:20 AM FINDINGS: Intraperitoneal space: No free air. Gastrointestinal tract: Unremarkable. No dilation. Organs: Unremarkable as visualized. Bones/joints: Unremarkable. IMPRESSION: Unremarkable abdominal x-rays. Thank you for allowing us to participate in the care of your patient. Dictated and Authenticated by: Prakash Caldera MD 05/31/2018 5:08 PM Central Time ([place] & [place]) Departure - Departure Time of Disposition: 17:50 (admitted to Dr. Sepulveda) Disposition: Admitted As Inpatient 64 Condition: Fair Clinical Impression: Generalized weakness, History of colon cancer UTI (urinary tract infection) Qualifiers: Urinary tract infection type: site unspecified Hematuria presence: without hematuria Qualified Code(s): N39.0 - Urinary tract infection, site not specified Constipation Qualifiers: Constipation type: unspecified constipation type Qualified Code(s): K59.00 - Constipation, unspecified Anemia Qualifiers: Anemia type: iron deficiency Iron deficiency anemia type: unspecified iron deficiency Qualified Code(s): D50.9 - Iron deficiency anemia, unspecified - Discharge Information Referrals: Bossman Sepulveda MD [Primary Care Provider] - Forms: ED Department Discharge - My Orders Last 24 Hours: My Active Orders 05/31/18 17:05 CULTURE URINE [RM] Stat UA W/MICROSCOPIC [URIN] Stat 05/31/18 17:12 Hemoccult, Stool [OCCULT BLOOD DIAGNOSTIC] [OP] Stat 05/31/18 17:13 Enema [RC] ASDIRECTED 05/31/18 17:46 Peripheral IV Care [RC] . DIRECTED Sodium Chloride 0.9% [Saline Flush] 10 ml FLUSH ASDIRECTED PRN Peripheral IV Insertion Adult [OM.PC] Stat - Assessment/Plan Last 24 Hours: My Active Orders 05/31/18 17:05 CULTURE URINE [RM] Stat UA W/MICROSCOPIC [URIN] Stat 05/31/18 17:12 Hemoccult, Stool [OCCULT BLOOD DIAGNOSTIC] [OP] Stat 05/31/18 17:13 Enema [RC] ASDIRECTED 05/31/18 17:46 Peripheral IV Care [RC] . DIRECTED Sodium Chloride 0.9% [Saline Flush] 10 ml FLUSH ASDIRECTED PRN Peripheral IV Insertion Adult [OM.PC] Stat
[2018-05-31 17:15] LABS: ANION GAP 12.1; CHLORIDE,CL 101 mmol/L (101-111); SODIUM,NA 137 mmol/L (135-145)
[2018-05-31] MEDS ORDERED: cefTRIAXone 1 GM Vial IVPUSH ONE (17:46)
[2018-05-31] MEDS: Sodium Chloride 0.9% 10 ML Syringe FLUSH PRN (18:19)
[2018-05-31] MEDS ORDERED: Acetaminophen 325 MG Tab PO PRN (18:25)
[2018-05-31] MEDS ORDERED: Acetaminophen/HYDROcodone 325-10 MG Tab PO PRN (18:25)
[2018-05-31] MEDS ORDERED: Sodium Chloride 0.9% 10 ML Syringe FLUSH PRN (18:25)
--- NOTE | 2018-05-31 20:40 | HP ---
CHIEF COMPLAINT: Generalized weakness. HISTORY OF PRESENT ILLNESS: The patient is a 77-year-old lady with past medical history of diabetes mellitus, seizure, history of CVA, colon cancer, who was admitted through the emergency room because the patient was complaining of constipation and also with generalized weakness, and also complaining of some urinary urgency and discomfort and complaining of feeling chilly. She also admitted that she has noticed some blood in her stool. The patient denies though any chest pain or shortness of breath, syncope, nor any other associated symptoms and in the emergency room, the patient was evaluated and she was noted to have urinary tract infection and also noted to be anemic and because of the above, she was then admitted for further evaluation and management. PAST MEDICAL HISTORY: As in HPI. FAMILY HISTORY: Noncontributory. SOCIAL HISTORY: Lives by herself, and she is a nonsmoker and nonalcohol drinker. HOME MEDICATION: 1. Pepcid 20 mg daily. 2. Calcium carbonate with vitamin D. 3. Aspirin. 4. Tylenol. 5. Dilantin. 6. Lasix. 7. Potassium chloride. 8. Lipitor. 9. Seroquel. 10.Glipizide. ALLERGIES: Tetanus toxoid, Augmentin, doxycycline. PHYSICAL EXAMINATION: General: The patient is alert and oriented, looks weak, but not in any acute distress. Vital Signs: Blood pressure is 179/58, pulse of 90, respiration of 16, temperature of 98.4. SHEENT: Normocephalic. There is pale palpebral conjunctiva. Sclerae anicteric. No JVD. No lymphadenopathy. Heart: Regular rate and rhythm. Normal S1 and S2. No gallops. No rubs. Lungs: Equal bilaterally. No crackles, no wheezing. Abdomen: Moderately obese, soft. There is mild direct tenderness diffusely. No rebound. Bowel sounds positive. Extremities: Negative for any significant pedal edema. No calf tenderness. LABORATORY DATA: Lab workup; CBC, WBC 9.8, hemoglobin is 8.9, hematocrit is 30.4, platelet is 263. Comp panel, glucose is 194, alkaline phosphatase 167, total protein of 6.5, the rest of the panel unremarkable. Urinalysis is remarkable for more than 100 wbc's and many bacteria. An abdominal x-ray is unremarkable. ADMITTING DIAGNOSES: 1. Anemia, possibly secondary to gastrointestinal bleeding. 2. Urinary tract infection. 3. General debility. 4. Type 2 diabetes mellitus. 5. History of seizure. 6. History of colon cancer. TREATMENT PLAN: The patient is going to be admitted to General Medicine Floor. She will be empirically started on IV antibiotics for urinary tract infection, and she will be transfused 2 units packed RBC and a consultation with Dr. Amaya will be done because of the blood in the stool and history of colon cancer, and she may need a colonoscopy. The rest of the management as necessary and the patient is a full code. [facility] /[id number]
[2018-05-31] MEDS ORDERED: Non-Formulary Medication 1 Each (Calcium Carbonate/Vitamin D3 [Calcium 500 + Vit D Caplet] PO SCH (21:00)
[2018-05-31] MEDS: Calcium Carbonate/Vitamin D3 1250 MG-200 Unit Tab PO SCH (23:01)
[2018-05-31] MEDS: Docusate Sodium 100 MG Cap PO SCH (23:01)
[2018-05-31] MEDS: glipiZIDE 5 MG Tab PO SCH (23:01)
[2018-05-31] MEDS: QUEtiapine 25 MG Tab PO SCH (23:02)
[2018-05-31] MEDS ORDERED: Phenytoin 100 MG Cap.ER PO ONE (23:45)
[2018-06-01] MEDS ORDERED: glipiZIDE 5 MG Tab PO SCH (08:00)
[2018-06-01] MEDS: glipiZIDE 5 MG Tab PO SCH ×2 (08:54→18:10)
[2018-06-01] MEDS: Calcium Carbonate/Vitamin D3 1250 MG-200 Unit Tab PO SCH ×2 (08:55→21:10)
[2018-06-01] MEDS: Phenytoin 100 MG Cap.ER PO SCH ×2 (08:55→18:10)
[2018-06-01] MEDS: Docusate Sodium 100 MG Cap PO SCH ×2 (08:56→21:10)
[2018-06-01] MEDS ORDERED: Phenytoin 100 MG Cap.ER PO SCH (09:00)
[2018-06-01] MEDS: Pantoprazole 40 MG Vial IVPUSH SCH (09:05)
[2018-06-01] MEDS: Levofloxacin/Dextrose 5%-Water 250 MG in Premix Bag 1 BAG IV SCH (09:14)
[2018-06-01] MEDS: Sodium Chloride 0.9% 10 ML Syringe FLUSH PRN (10:11)
--- NOTE | 2018-06-01 12:42 | PN ---
DATE: 06/01/2018 SUBJECTIVE: The patient is feeling much better this morning, and the abdominal pain has improved. Enema was tried last night, but there was no stool that came back. It was also sent for Hemoccult testing and it came back negative. The patient denies any chest pain, shortness of breath nor any other complaints. Blood transfusion is still being awaited as patient has C antibody. LABORATORY DATA: Lab workup this morning, CBC; WBC is 8.2, hemoglobin is 8.8, hematocrit is 29.6, platelet is 275, glucose is 80. OBJECTIVE: Vital Signs: Blood pressure is 155/56, pulse of 74, respirations 20, and temperature of 97.7. Heart: Regular rate and rhythm. Normal S1, S2. No gallops. No rubs. Lungs: Equal bilaterally. No crackles. No wheezing. Abdomen: Soft, nontender. Bowel sounds positive. Extremity: Negative for any significant pedal edema. No calf tenderness. PLAN: We will advance her diet to consistent carbohydrate diet and we will continue with the rest of her management. [facility] /[id number]
[2018-06-01] MEDS: QUEtiapine 25 MG Tab PO SCH (21:10)
[2018-06-02] MEDS: Levofloxacin/Dextrose 5%-Water 250 MG in Premix Bag 1 BAG IV SCH (08:26)
[2018-06-02] MEDS: Phenytoin 100 MG Cap.ER PO SCH ×2 (08:27→17:27)
[2018-06-02] MEDS: Calcium Carbonate/Vitamin D3 1250 MG-200 Unit Tab PO SCH ×2 (08:28→21:13)
[2018-06-02] MEDS: Docusate Sodium 100 MG Cap PO SCH ×2 (08:28→21:14)
[2018-06-02] MEDS: glipiZIDE 5 MG Tab PO SCH ×2 (08:28→17:27)
[2018-06-02] MEDS: Pantoprazole 40 MG Vial IVPUSH SCH (08:29)
--- NOTE | 2018-06-02 10:02 | CONS ---
SERVICE DATE: 06/02/2018 HISTORY OF PRESENT ILLNESS: This 77-year-old female is seen in gastroenterology consultation at the request of Dr. Sepulveda for elective evaluation of history of rectal bleeding, recently detected anemia requiring packed cell transfusion as well as urinary bladder infection, treated with antibiotic Levaquin now. Detailed information gathered and reviewed from extensive clinic records as well as information in the hospital here. She admits to having heartburn on and off in the past year without regurgitation, no vomiting, and no hematemesis. According to her, she had weight loss of 20 to 30 pounds in the past year. Denies any dysuria or hematuria. At times, she is not able to pass urine much, had tendency for constipation in the past year. Noted small volume bright red rectal bleeding now and then and also has noted some dark stools. No documented fever at home. Had some chills. No pleuritic chest pain. No anginal kind of chest pain, palpitations, or exertional dyspnea. Has limited physical activities. No orthopnea or PND. Denies postural dizziness, vertigo, or syncopal episodes. No headache. 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 At times, more pronounced. No peripheral joint swelling. SOCIAL HISTORY: Previous cigarette smoker, stopped smoking cigarettes 20 years ago, does not drink alcohol, does not take large amounts of aspirin-related medications regularly. Does not take coffee, but takes pop drinks. No milk intolerance. FAMILY HISTORY: Not aware of illnesses among her parents. Not aware of IBD, colon polyp, or colon cancer in immediate family members. Negative for peptic ulcer disease or liver disease. PAST ILLNESS: Tobacco habituation, history of CVA, history of seizure disorder, type 2 diabetes mellitus, status post colon cancer surgery, allergy and/or intolerance to tetanus toxoid, amoxicillin as well as trihydrate. No previous peptic ulcer disease or hepatitis. No previous rheumatic fever or CAD. PHYSICAL EXAMINATION: GENERAL: Alert, oriented, appears not to be in distress, not short of breath at rest. VITAL SIGNS: Temperature 96.3, pulse 72 per minute, BP 189/59, respirations 20, and O2 saturation 97. ENT: Unremarkable. Mallampati class I. LUNGS: Few bilateral scattered rhonchi heard. HEART: S1 and S2, regular. Prominent precordial systolic murmur heard with conduction to both the carotids. No generalized lymphadenopathy. Some leg edema noted bilateral, more so left side, no phlebitis. ABDOMEN: Obese, soft, surgical scar noted. No ascites. No hepatosplenomegaly. Some tenderness elicited in all areas. Bowel sounds are active. RECTAL: Deferred, will be done at the time of colonoscopy. INVESTIGATIONS: Initial WBC 1200 with 70 neutrophils, hematocrit 29.6, indices low, and platelet 275,000. Blood glucose 80. Today, hemoglobin 12 and hematocrit 38. IMPRESSION: 1. Gastrointestinal bleeding. 2. Iron-deficiency anemia. 3. Status post colon cancer resection. 4. Status post cerebrovascular accident. 5. Seizure disorder. 6. Type 2 diabetes mellitus. 7. Allergy and/or intolerance to tetanus vaccine and amoxicillin. 8. Allergy and/or intolerance to tetanus toxoid, Augmentin, and doxycycline. RECOMMENDATIONS: The patient is not actively bleeding at this time, is getting treated for urinary bladder infection. Follow up hemoglobin and hematocrit. We will plan on endoscopic evaluation electively as outpatient. Has longstanding difficulties with heartburn and on acid suppressants. Requires EGD. Had previous colon cancer surgery and has not had colonoscopic evaluation in the past years. Colonoscopy to be scheduled with 4-liter GoLYTELY split bowel preparation. Procedure, goals, limitations, and complications including remote ones related to EGD, colonoscopy, biopsies, polypectomies, endoscopic hemostasis therapy, and conscious sedation explained in detail, missed lesions, malignant and potentially malignant talked about, alternatives discussed and informed consent obtained. Will see her in the clinic next week with hemoglobin and hematocrit and plan on endoscopic evaluation earlier study if indicated. We will follow. [facility] /[id number]
--- NOTE | 2018-06-02 16:28 | PCM.PN ---
- General Info Date of Service: 06/02/18 Subjective Update: Patient is a 77 year old female, admitted because of generalized weakness. Noted to have urinary infection. Started on antibiotics. Reports hasn't had any bowel movement lately. Functional Status: Reports: Tolerating Diet, Ambulating - Patient Data Vitals - Most Recent: Last Vital Signs Temp 98.1 F 06/02/18 16:16 Pulse 84 06/02/18 16:16 Resp 20 06/02/18 16:16 BP 179/73 H 06/02/18 16:16 Pulse Ox 97 06/02/18 16:16 Weight - Most Recent: 174 lb 6.4 oz I&O - Last 24 Hours: Intake & Output 06/02/18 06/02/18 06/02/18 06:59 14:59 22:59 Intake Total 10 860 Output Total 600 400 250 Balance -590 460 -250 Lab Results Last 24 Hours: Laboratory Results - last 24 hr 05/31/18 06/01/18 06/01/18 Range/Units 16:45 16:42 20:46 WBC (5.0-10.0) 10^3/uL RBC (4.2-5.4) 10^6/uL Hgb (12.0-16.0) g/dL Hct (37.0-47.0) % MCV (80-100) fL MCH (27.0-34.0) pg MCHC (33.0-35.0) g/dL Plt Count (150-450) 10^3/uL Neut % (Auto) (42.2-75.2) % Lymph % (Auto) (20.5-50.1) % Barbour % (Auto) (2-8) % Eos % (Auto) (1.0-3.0) % Baso % (Auto) (0.0-1.0) % POC Glucose 172 H 76 L (83-110) mg/dl Blood Type O NEGATIVE Gel Antibody Screen Negative Crossmatch See Detail 06/02/18 06/02/18 06/02/18 Range/Units 06:15 07:31 11:25 WBC 9.3 (5.0-10.0) 10^3/uL RBC 4.99 (4.2-5.4) 10^6/uL Hgb 12.0 D (12.0-16.0) g/dL Hct 38.0 (37.0-47.0) % MCV 76.2 L (80-100) fL MCH 24.0 L (27.0-34.0) pg MCHC 31.6 L (33.0-35.0) g/dL Plt Count 235 (150-450) 10^3/uL Neut % (Auto) 70.3 (42.2-75.2) % Lymph % (Auto) 15.6 L (20.5-50.1) % Barbour % (Auto) 11.0 H (2-8) % Eos % (Auto) 2.8 (1.0-3.0) % Baso % (Auto) 0.3 (0.0-1.0) % POC Glucose 99 114 H (83-110) mg/dl Blood Type Gel Antibody Screen Crossmatch Eliu Results Last 24 Hours: Microbiology 05/31/18 17:05 Urine Culture - Final Urine, Clean Catch Escherichia Coli Med Orders - Current: Current Medications Acetaminophen (Tylenol) 650 mg PO Q4H PRN PRN Reason: Pain (Mild 1-3)/fever Hydrocodone Bitart/Acetaminophen ([place]lew 325-10 Mg) 0.5 tab PO Q4H PRN PRN Reason: Pain (moderate 4-6) Calcium Carbonate (Calcium Carbonate/Vitamin D 1250 Mg-200 Unit) 1 tab PO BID [facility] Last Admin: 06/02/18 08:28 Dose: 1 tab Docusate Sodium (Colace) 100 mg PO BID [facility] Last Admin: 06/02/18 08:28 Dose: 100 mg Glipizide (Glucotrol) 7.5 mg PO BIDMEALS [facility] Last Admin: 06/02/18 08:28 Dose: 7.5 mg Levofloxacin/Dextrose 250 mg/ (Premix) 50 mls @ 50 mls/hr IV DAILY [facility] Last Admin: 06/02/18 08:26 Dose: 50 mls/hr Pantoprazole Sodium (Protonix Iv) 40 mg IVPUSH DAILY [facility] Last Admin: 06/02/18 08:29 Dose: 40 mg Phenytoin Sodium (Phenytoin) 100 mg PO DAILY [facility] Last Admin: 06/02/18 08:27 Dose: 100 mg Phenytoin Sodium (Phenytoin) 200 mg PO DAILY@1600 [facility] Last Admin: 06/01/18 18:10 Dose: 200 mg Quetiapine Fumarate (Seroquel) 50 mg PO BEDTIME [facility] Last Admin: 06/01/18 21:10 Dose: 50 mg Sodium Chloride (Saline Flush) 10 ml FLUSH ASDIRECTED PRN PRN Reason: Keep Vein Open Last Admin: 06/01/18 10:11 Dose: 10 ml Sodium Chloride (Saline Flush) 10 ml FLUSH ASDIRECTED PRN PRN Reason: Keep Vein Open Discontinued Medications Ceftriaxone Sodium (Rocephin) 1 gm IVPUSH ONETIME ONE Stop: 05/31/18 17:47 Last Admin: 05/31/18 18:20 Dose: 1 gm Glipizide (Glucotrol) 7.5 mg PO BIDMEALS [facility] Non-Formulary Medication (Calcium Carbonate/Vitamin D3 [Calcium 500 + Vit D Caplet]) 1 tab PO BID [facility] Last Admin: 06/01/18 00:42 Dose: Not Given Phenytoin Sodium (Phenytoin) 200 mg PO DAILY [facility] Phenytoin Sodium (Phenytoin) 200 mg PO ONETIME ONE Stop: 05/31/18 23:46 Last Admin: 05/31/18 23:37 Dose: 200 mg - Exam General: Alert, Oriented Lungs: Clear to Auscultation, Normal Respiratory Effort Cardiovascular: Regular Rate, Regular Rhythm, No Murmurs GI/Abdominal Exam: Normal Bowel Sounds, Soft, Non-Tender Extremities: No Pedal Edema - Problem List Review Problem List Initiated/Reviewed/Updated: Yes - My Orders Last 24 Hours: My Active Orders 06/02/18 11:52 OT Evaluation and Treatment [CONS] Routine PT Evaluation and Treatment [CONS] Routine 06/02/18 16:18 IRON PNL (FE, TIBC, MARIA LUZ, %SAT) [REF] Routine 06/03/18 06:00 CBC W/O DIFF,HEMOGRAM [HEME] Routine - Plan Plan:: 1. Anemia, status post transfusion - Hemoglobin stable, appropriate increased from the transfusion - Evaluated by gastroenterology, plan is to do outpatient EGD. - For now, to follow hemoglobin until it remained stable - Noted to have microcytosis, holding off with the iron studies given the recent transfusion 2. UTI, secondary to Escherichia coli - Continue current antibiotic 3. Generalized weakness, multifactorial, could be from the infection versus the anemia - PT and OT to evaluate patient also for discharge planning - Patient lives alone in the apartment 4. History of seizure disorder - Continue antiepileptic medication 5. Diabetes mellitus - Sugars okay, continue glucose checks 6. History of CVA 7. History of colon cancer - Due to have colonoscopy 8. History of CHF, asymptomatic 9. Hypertension Patient was noted to have elevated blood pressure Start lisinopril 10 mg daily and to monitor response
[2018-06-02] MEDS ORDERED: Lisinopril 10 MG Tab PO ONE (17:51)
[2018-06-02] MEDS: Sodium Chloride 0.9% 10 ML Syringe FLUSH PRN (21:10)
[2018-06-02] MEDS: QUEtiapine 25 MG Tab PO SCH (21:14)
[2018-06-03] MEDS: glipiZIDE 5 MG Tab PO SCH (08:56)
[2018-06-03] MEDS: Docusate Sodium 100 MG Cap PO SCH (08:57)
[2018-06-03] MEDS: Phenytoin 100 MG Cap.ER PO SCH (08:57)
--- NOTE | 2018-06-03 08:57 | PN ---
DATE: 06/03/2018 SUBJECTIVE: Denies any specific difficulties. A bit constipated with no significant abdominal pain. No vomiting. No fever or chills. Did not ambulate much well yesterday, having quite a bit of company. OBJECTIVE: General: Alert. Appears not to be in distress. Not short of breath at rest. Vital Signs: Weight 175 pounds. BP 142/59, pulse 76 per minute, and temperature 98.2. Not short of breath at rest. Lungs: No adventitious sounds. Heart: S1 and S2, regular. Prominent precordial systolic murmur heard. Extremities: No pitting edema of the legs noted. Abdomen: Obese and soft. No areas of significant tenderness elicited. INVESTIGATIONS: Hemoglobin stable at 12.4, hematocrit 39 and this is low, and platelets 237,000. WBC 9600. RECOMMENDATIONS: If stable and discharged home, we will see her at the clinic earlier next week with hemoglobin and hematocrit. We will plan our endoscopic evaluation at next visit, to be seen earlier if needed. IMPRESSION: 1. Iron deficiency anemia. 2. Gastrointestinal bleeding. 3. Status post cerebrovascular accident. 4. Type 2 diabetes mellitus. 5. Urinary tract infection. 6. Hypertension. 7. Seizure disorder. [facility] /[id number]
[2018-06-03] MEDS: Calcium Carbonate/Vitamin D3 1250 MG-200 Unit Tab PO SCH (08:58)
[2018-06-03] MEDS: Pantoprazole 40 MG Vial IVPUSH SCH (08:59)
[2018-06-03] MEDS ORDERED: Lisinopril 10 MG Tab PO SCH (09:00)
[2018-06-03] MEDS: Levofloxacin/Dextrose 5%-Water 250 MG in Premix Bag 1 BAG IV SCH (09:00)
[2018-06-03 11:12] VITALS: BP 151/46
--- NOTE | 2018-06-03 13:01 | PCM.DCSUM1 ---
Discharge Summary - Hospital Course Free Text/Narrative:: 77 yo F with PMH of CVA, colon cancer, type 2 diabetes, admitted with generalized weakness, found to have urinary tract infection. Treatment was started with antibiotics and she improved symptomatically. Home Health was ordered on discharge. Diagnosis: Stroke: No - Discharge Data Discharge Date: 06/03/18 Discharge Disposition: Home, Self-Care 01 Condition: Fair - Patient Summary/Data Consults: Consultations 06/02/18 11:52 OT Evaluation and Treatment [CONS] Routine PT Evaluation and Treatment [CONS] Routine 06/02/18 18:25 Consult to Physician [CONS] Routine - Patient Instructions Diet: Usual Diet as Tolerated Activity: As Tolerated - Discharge Plan Prescriptions/Med Rec: levoFLOXacin [Levaquin] 500 mg PO DAILY #5 tab Home Medications: Home Meds Aspirin [Talya Chewable Aspirin] 81 mg PO DAILY 03/26/14 [History] Calcium Carbonate/Vitamin D3 [Calcium 500 + Vit D Caplet] 1 tab PO BID 09/18/15 [History] Furosemide 20 mg PO DAILY 09/18/15 [History] Phenytoin Sodium Extended [Dilantin] 100 mg PO DAILY 09/18/15 [History] Potassium Chloride 20 meq PO WITHBREAKFAST 09/18/15 [History] QUEtiapine Fumarate [Quetiapine Fumarate] 50 mg PO BEDTIME 09/18/15 [History] atorvaSTATin [Lipitor] 80 mg PO DAILY 09/18/15 [History] glipiZIDE [Glipizide] 7.5 mg PO BIDMEALS 09/18/15 [History] Acetaminophen [Tylenol] 650 mg PO Q4H PRN #30 tablet 07/22/17 [Rx] Famotidine 20 mg PO DAILY 05/31/18 [History] Phenytoin Sodium Extended [Dilantin] 200 mg PO DAILY@1600 05/31/18 [History] Potassium Chloride 10 meq PO WITHDINNER 05/31/18 [History] levoFLOXacin [Levaquin] 500 mg PO DAILY #5 tab 06/03/18 [Rx] Forms: ED Department Discharge Referrals: Bossman Sepulveda MD [Primary Care Provider] - - Discharge Summary/Plan Comment DC Time >30 min.: Yes - General Info Date of Service: 06/03/18 Admission Dx/Problem (Free Text: Urinary Tract Infection Subjective Update: Patient is a 77 year old female, admitted because of generalized weakness. Noted to have urinary infection. Started on antibiotics. - Review of Systems General: Reports: No Symptoms HEENT: Reports: No Symptoms Pulmonary: Reports: No Symptoms Cardiovascular: Reports: No Symptoms Gastrointestinal: Reports: No Symptoms Genitourinary: Reports: No Symptoms Musculoskeletal: Reports: No Symptoms Skin: Reports: No Symptoms - Patient Data Vitals - Most Recent: Last Vital Signs Temp 36.4 C 06/03/18 11:00 Pulse 72 06/03/18 11:00 Resp 20 06/03/18 11:00 BP 151/46 H 06/03/18 11:00 Pulse Ox 96 06/03/18 11:00 Weight - Most Recent: 79.379 kg I&O - Last 24 hours: Intake & Output 06/02/18 06/03/18 06/03/18 22:59 06:59 14:59 Intake Total 440 Output Total 750 500 Balance -310 -500 Lab Results - Last 24 hrs: Laboratory Results - last 24 hr 06/02/18 06/02/18 06/03/18 Range/Units 16:57 21:00 06:18 WBC 9.6 (5.0-10.0) 10^3/uL RBC 5.14 (4.2-5.4) 10^6/uL Hgb 12.4 (12.0-16.0) g/dL Hct 39.0 (37.0-47.0) % MCV 75.9 L (80-100) fL MCH 24.1 L (27.0-34.0) pg MCHC 31.8 L (33.0-35.0) g/dL Plt Count 237 (150-450) 10^3/uL POC Glucose 100 113 H (83-110) mg/dl 06/03/18 06/03/18 06/03/18 Range/Units 07:40 10:56 11:21 WBC (5.0-10.0) 10^3/uL RBC (4.2-5.4) 10^6/uL Hgb (12.0-16.0) g/dL Hct (37.0-47.0) % MCV (80-100) fL MCH (27.0-34.0) pg MCHC (33.0-35.0) g/dL Plt Count (150-450) 10^3/uL POC Glucose 89 119 H 130 H (83-110) mg/dl Med Orders - Current: Current Medications Acetaminophen (Tylenol) 650 mg PO Q4H PRN PRN Reason: Pain (Mild 1-3)/fever Hydrocodone Bitart/Acetaminophen ([place] 325-10 Mg) 0.5 tab PO Q4H PRN PRN Reason: Pain (moderate 4-6) Calcium Carbonate (Calcium Carbonate/Vitamin D 1250 Mg-200 Unit) 1 tab PO BID [facility] Last Admin: 06/03/18 08:58 Dose: 1 tab Docusate Sodium (Colace) 100 mg PO BID [facility] Last Admin: 06/03/18 08:57 Dose: 100 mg Glipizide (Glucotrol) 7.5 mg PO BIDMEALS [facility] Last Admin: 06/03/18 08:56 Dose: 7.5 mg Levofloxacin/Dextrose 250 mg/ (Premix) 50 mls @ 50 mls/hr IV DAILY [facility] Last Admin: 06/03/18 09:00 Dose: 50 mls/hr Lisinopril (Prinivil) 10 mg PO DAILY [facility] Last Admin: 06/03/18 08:57 Dose: 10 mg Pantoprazole Sodium (Protonix Iv) 40 mg IVPUSH DAILY [facility] Last Admin: 06/03/18 08:59 Dose: 40 mg Phenytoin Sodium (Phenytoin) 100 mg PO DAILY [facility] Last Admin: 06/03/18 08:57 Dose: 100 mg Phenytoin Sodium (Phenytoin) 200 mg PO DAILY@1600 [facility] Last Admin: 06/02/18 17:27 Dose: 200 mg Quetiapine Fumarate (Seroquel) 50 mg PO BEDTIME [facility] Last Admin: 06/02/18 21:14 Dose: 50 mg Sodium Chloride (Saline Flush) 10 ml FLUSH ASDIRECTED PRN PRN Reason: Keep Vein Open Last Admin: 06/02/18 21:10 Dose: 10 ml Sodium Chloride (Saline Flush) 10 ml FLUSH ASDIRECTED PRN PRN Reason: Keep Vein Open Discontinued Medications Ceftriaxone Sodium (Rocephin) 1 gm IVPUSH ONETIME ONE Stop: 05/31/18 17:47 Last Admin: 05/31/18 18:20 Dose: 1 gm Glipizide (Glucotrol) 7.5 mg PO BIDMEALS [facility] Lisinopril (Prinivil) 10 mg PO ONETIME ONE Stop: 06/02/18 17:52 Last Admin: 06/02/18 18:42 Dose: 10 mg Non-Formulary Medication (Calcium Carbonate/Vitamin D3 [Calcium 500 + Vit D Caplet]) 1 tab PO BID [facility] Last Admin: 06/01/18 00:42 Dose: Not Given Phenytoin Sodium (Phenytoin) 200 mg PO DAILY [facility] Phenytoin Sodium (Phenytoin) 200 mg PO ONETIME ONE Stop: 05/31/18 23:46 Last Admin: 05/31/18 23:37 Dose: 200 mg - Exam General: Reports: Alert, Oriented HEENT: Reports: Pupils Equal, Pupils Reactive Lungs: Reports: Clear to Auscultation Cardiovascular: Reports: Regular Rate, Regular Rhythm GI/Abdominal Exam: Normal Bowel Sounds *Q Meaningful Use (DIS) - VTE *Q VTE Pharmacological Contraindications *Q: Active Hemorrhage
== END 2018-06-03 13:00 | disposition home or self-care (01) | DRG 690 ==
LOC: DL.ED 16:26 → DL.MS 18:25
PROVIDERS: ADMIT Internal Medicine; ATTEND Internal Medicine
PROC: 30233N1 Transfusion of Nonautologous Red Blood Cells into Peripheral Vein, Percutaneous Approach (ICD-10-PCS; principal; 2018-06-01)
DX: N39.0 Urinary tract infection, site not specified (principal); K92.1 Melena; D50.9 Iron deficiency anemia, unspecified; H35.30 Unspecified macular degeneration; B96.20 Unspecified Escherichia coli [E. coli] as the cause of diseases classified elsewhere; K21.9 Gastro-esophageal reflux disease without esophagitis; E11.9 Type 2 diabetes mellitus without complications; N39.3 Stress incontinence (female) (male); M19.90 Unspecified osteoarthritis, unspecified site; E66.9 Obesity, unspecified; Z68.30 Body mass index [BMI] 30.0-30.9, adult; L40.9 Psoriasis, unspecified; K59.00 Constipation, unspecified; G40.909 Epilepsy, unspecified, not intractable, without status epilepticus; Z85.038 Personal history of other malignant neoplasm of large intestine; I11.0 Hypertensive heart disease with heart failure; I50.9 Heart failure, unspecified; Z79.84 Long term (current) use of oral hypoglycemic drugs; Z87.01 Personal history of pneumonia (recurrent); Z79.82 Long term (current) use of aspirin; Z79.899 Other long term (current) drug therapy; Z88.0 Allergy status to penicillin; Z88.7 Allergy status to serum and vaccine; Z86.73 Personal history of transient ischemic attack (TIA), and cerebral infarction without residual deficits; R56.9 Unspecified convulsions; Z87.891 Personal history of nicotine dependence; E78.00 Pure hypercholesterolemia, unspecified; Z98.890 Other specified postprocedural states
CPT/HCPCS: 36415; 74021; 80053; 81001; 83615; 85025; 86850; 86900; 86901; 86920 ×2; 86922 ×2; 87086; 87088; 87186; 96374; 99285; J0696; J7050; 36430; 82272; 82962; 85027; 97161-GP; 97166-GO; A9270-GY; C9113; J1956; P9016